=== PATIENT | female | born 1960 | race African-American/Black ===

== ENCOUNTER 2017-12-23 07:41 | Emergency (ER) | payer SELFPAY ==
[2017-12-23] MEDS ORDERED: DEXAMETHASONE 10 MG/ML VIAL ONE (08:04)
[2017-12-23] MEDS ORDERED: FENTANYL CITR 100 MCG/2 ML ONE (08:05)
[2017-12-23] MEDS ORDERED: ONDANSETRON 4 MG/2 ML VIAL ONE ×3 (08:05→14:24)
[2017-12-23] MEDS ORDERED: KETOROLAC 30 MG/ML INJ ONE (08:05)
[2017-12-23] MEDS ORDERED: METHOCARBAMOL 1,000 MG in NA CHLORIDE 0.9% 100 ML IV ONE (08:15)
[2017-12-23] MEDS ORDERED: HYDROMORPHONE HCL 2 MG/ML inj ONE (09:08)
[2017-12-23 09:35] LABS: Absolute Lymphocytes (CBC) 1.9 K/uL (0.7-4.9); Absolute Monocytes 0.3 K/uL (0.1-1.3); Absolute Neutrophil 5.2 K/uL (1.8-8.0); Basophils % 0.7 % (0-1.3); Eosinophils % 0.5 % (0-4.4); Hematocrit 41.7 % (36.0-45.0); Lymphocytes % 25.4 % (15.3-44.8); MCH 30.9 pg (27.0-35.0); MCV 93.5 fL (80-100); MPV 8.8 fL (7.6-11.3); Monocytes % 4.4 % (3.3-12.3); RBC Red Blood Cell Count 4.46 M/uL (3.86-4.86)
[2017-12-23 09:51] LABS: BUN Blood Urea Nitrogen 19 mg/dL (7-18); Bicarbonate 26 mmol/L (21-32); Glucose Level 90 mg/dL (74-106); Potassium 3.8 mmol/L (3.5-5.1); Sodium Level 143 mmol/L (136-145)
[2017-12-23] MEDS ORDERED: LORazepam 2 MG/ML VIAL ONE (09:55)
--- NOTE | 2017-12-23 10:35 | RAD REPORT ---
EXAM DESCRIPTION: MRI - Lumbar Spine Wo Con- 12/23/2017 10:19 am CLINICAL HISTORY: LOWER BACK PAIN Radiculopathy COMPARISON: CT ABDOMEN WO dated 05/31/2010 FINDINGS: Vertebral body heights are within normal limits. Small T2 hyperintense lesion is seen the L2 vertebral body, nonspecific. No fracture is suspected. The conus medullaris terminates at a normal level. No thickening of the cauda equina or clumping of n erve roots seen. L1-2 level: No significant findings. L2-3 level: Mild facet hypertrophy. L3-4 level: Durp-gv-yjwebjyd facet and ligamentum flavum hypertrophy. L4-5 level: Large central posterior annular fissure is present with a 3 mm central disc protrusion no manan. Mild bilateral facet and ligamentum flavum hypertrophy. No significant central canal narrowed na rrowing L5-S1 level: Large central posterior annular fissure is identified with a moderate central disc protr usion measuring 4 mm in anterior-posterior dimension. No central canal narrowing is seen mild narrowi ng the anterior inferior aspects both exit foramina. No paraspinal mass or hematoma suspected. IMPRESSION: Prominent spondylosis as detailed at L4-5 and L5-S1. Small T1 hypointense, T2 hyperintense lesion in the L2 vertebral body is nonspecific. Consider follow up nonemergent nuclear medicine bone scan evaluation.
--- NOTE | 2017-12-23 11:18 | ER ---
Nurse's Notes [facility] Name: Huyen Cerda Age: 57 yrs Sex: Female : 1960 Arrival Date: 12/23/2017 Time: 07:45 Bed 13 Private MD: Diagnosis: Low back pain;Spondylosis Presentation: 12/23 07:50 Presenting complaint: Patient states: "i went swimming 2 days ago and i have been tw2 having back pain since then". Transition of care: patient was not received from another setting of care. Onset of symptoms was December 23, 2017. Risk Assessment: Do you want to hurt yourself or someone else? Patient reports no desire to harm self or others. Initial Sepsis Screen: Does the patient meet any 2 criteria? No. Patient's initial sepsis screen is negative. Does the patient have a suspected source of infection? No. Patient's initial sepsis screen is negative. Care prior to arrival: None. 07:50 Method Of Arrival: Wheelchair tw2 07:50 Acuity: CINDY 4 tw2 09:14 Acuity: CINDY 3 hb Triage Assessment: 07:52 General: Appears uncomfortable, well groomed, Behavior is crying. Pain: Complains of tw2 pain in back. EENT: No signs and/or symptoms were reported regarding the EENT system. Neuro: Level of Consciousness is awake, alert, obeys commands, Oriented to person, place, time, situation. Cardiovascular: Denies chest pain, shortness of breath, Patient's skin is warm and dry. Respiratory: Airway is patent Respiratory effort is even, unlabored, Respiratory pattern is regular, symmetrical. GI: No signs and/or symptoms were reported involving the gastrointestinal system. : No signs and/or symptoms were reported regarding the genitourinary system. Derm: No signs and/or symptoms reported regarding the dermatologic system. Musculoskeletal: Circulation, motion, and sensation intact. Range of motion: intact in all extremities. Historical: - Allergies: 07:54 PENICILLINS; tw2 - Home Meds: 07:54 "unknown blood pressure and cholesterol medicine" [Active]; tw2 - PMHx: 07:54 Hypertension; Hyperlipidemia; tw2 - PSHx: 07:54 Hysterectomy; tw2 - Immunization history:: Adult Immunizations up to date. - Social history:: Smoking status: Patient/guardian denies using tobacco. - Ebola Screening: : Patient denies travel to an Ebola-affected area in the 21 days before illness onset. Screenin:52 Abuse screen: Denies threats or abuse. Nutritional screening: No deficits noted. tw2 Tuberculosis screening: No symptoms or risk factors identified. Fall Risk None identified. Assessment: 07:55 Reassessment: provider at bedside at this time. tw2 08:51 Reassessment: No changes from previously documented assessment. Patient and/or family tw2 updated on plan of care and expected duration. Pain level reassessed. Patient is alert, oriented x 3, equal unlabored respirations, skin warm/dry/pink. "do yall have a sandwich or something", crackers and drink provided at this time. Patient states symptoms have not improved. Neuro: Level of Consciousness is awake, alert, obeys commands. 09:02 Reassessment: provider at bedside at this time. tw2 09:13 Reassessment: lab at bedside at this time, pt pulling arm back when they were trying to tw2 get blood, lab was able to get blood on the 2nd stick. 09:38 Reassessment: pt transported via stretcher to MRI at this time. tw2 09:55 Reassessment: MRI called, pt uncooperative, states "needs something for tw2 claustrophobia", provider notified, medicated as ordered. 10:37 Reassessment: Patient appears in no apparent distress at this time. Patient and/or tw2 family updated on plan of care and expected duration. Pain level reassessed. Patient is alert, oriented x 3, equal unlabored respirations, skin warm/dry/pink. pt back from MRI at this time, pt drowsy but arousable, will answer and did answer her personal phone at this time. 11:30 Reassessment: Patient appears in no apparent distress at this time. Patient and/or tw2 family updated on plan of care and expected duration. Pain level reassessed. Patient is alert, oriented x 3, equal unlabored respirations, skin warm/dry/pink. pt still drowsy but arousable, pt instructed to call family again for ride, pt verbalizes understanding and is using her phone at this time. 12:15 Reassessment: pt still very drowsy, assisted pt to call family to pick her up, pt iw states that her family has to ride the bus to get here then will take her home in her car, assisted pt with getting dressed, pt able to stand but still shaky, pt placed back in bed to await ride. 14:25 Reassessment: pt vomiting at this time, SONIA García at bedside to assess pt, family now at bedside, will stay with pt when she is discharged, pt medicated per JUL. Vital Signs: 07:51 BP 164 / 115; Pulse 119; Resp 19; Temp 98.0(O); Pulse Ox 100% on R/A; Weight 79.38 kg tw2 (R); Height 5 ft. 3 in. (160.02 cm); Pain 10/10; 08:50 BP 154 / 94; Pulse 80; Resp 17; Pulse Ox 98% on R/A; tw2 09:19 Pulse Ox 90% on R/A; tw2 10:36 BP 168 / 73; Pulse 86; Resp 12; Pulse Ox 97% on 2 lpm NC; tw2 11:29 BP 144 / 72; Pulse 93; Resp 17; Pulse Ox 97% on 2 lpm NC; tw2 12:41 BP 158 / 87; Pulse 74; Resp 14; Pulse Ox 96% on R/A; Pain 0/10; iw 07:51 Body Mass Index 31.00 (79.38 kg, 160.02 cm) tw2 09:19 pt placed on o2 via 2L at this time, will continue to monitor, pt laying flat states "i tw2 dont like the way i feel", pt educated as to the side effects of Dilaudid again at this time. ED Course: 07:45 Patient arrived in ED. tw3 07:50 Galilea Jerez, MATTHEW is Primary Nurse. tw2 07:51 Triage completed. tw2 07:51 Ricky Matta PA is PHCP. jr8 07:51 Xavi Ricks MD is Attending Physician. jr8 07:51 Arm band placed on. tw2 07:52 Bed in low position. Call light in reach. Pulse ox on. NIBP on. tw2 08:04 Inserted saline lock: 20 gauge in right antecubital area, using aseptic technique. dh3 09:55 One on one care x30 minutes in MRI. tw2 09:58 Patient moved to MRI via stretcher. em2 10:17 MRI Lumbar Spine wo Con In Process Unspecified. EDMS 10:25 MRI completed. em2 10:25 Patient moved back from MRI. em2 11:28 Awaiting: family to drive pt home PRIOR to discharge. tw2 11:52 Report given to MATTHEW Salgado. tw2 12:37 Primary Nurse role handed off by Galilea Jerez RN iw 12:37 Naomi Blas RN is Primary Nurse. iw 14:36 No provider procedures requiring assistance completed. IV discontinued, intact, iw bleeding controlled, No redness/swelling at site. Pressure dressing applied. Administered Medications: 08:00 Drug: Zofran 4 mg Route: IVP; Site: right antecubital; tw2 08:21 Follow up: Response: No adverse reaction tw2 08:02 Drug: fentaNYL (PF) 50 mcg Route: IVP; Site: right antecubital; tw2 08:20 Follow up: Response: No adverse reaction; Pain is unchanged, physician notified tw2 08:04 Drug: TORadol 30 mg Route: IVP; Site: right antecubital; tw2 08:21 Follow up: Response: No adverse reaction tw2 08:06 Drug: Decadron - Dexamethasone 10 mg Route: IVP; Site: right antecubital; tw2 08:20 Follow up: Response: No adverse reaction tw2 08:16 Drug: Robaxin 1 grams Route: IVPB; Infused Over: 1 hrs; Site: right antecubital; tw2 09:17 Follow up: Response: No adverse reaction; IV Status: Completed infusion tw2 09:17 Follow up: Response: No adverse reaction; IV Status: Completed infusion tw2 08:20 Drug: fentaNYL (PF) 50 mcg Route: IVP; Site: right antecubital; tw2 08:51 Follow up: Response: No adverse reaction; Pain is unchanged, physician notified tw2 09:08 Drug: Dilaudid 2 mg Route: IVP; Site: right antecubital; tw2 09:35 Follow up: Response: No adverse reaction; Pain is decreased tw2 09:37 Drug: Zofran 4 mg Route: IVP; Site: right antecubital; tw2 09:55 Follow up: Response: No adverse reaction; Nausea is decreased tw2 09:55 Drug: Ativan 0.5 mg Route: IVP; Site: right antecubital; tw2 10:00 Follow up: Response: No adverse reaction tw2 10:03 Drug: Ativan 0.5 mg Route: IVP; Site: right antecubital; tw2 10:25 Follow up: Response: No adverse reaction; Marked relief of symptoms tw2 14:20 Drug: Zofran 4 mg Route: IVP; Site: right antecubital; iw 14:45 Follow up: Response: No adverse reaction iw Outcome: 11:18 Discharge ordered by . [place] 14:36 Discharged to home via wheelchair, with family. iw 14:36 Condition: good 14:36 Discharge instructions given to patient, family, pt fiance at bedside to assist pt to wheelchair, pt able to stand on her own, got into wheelchair on her own, fiance educated on need to remain with pt at home Instructed on discharge instructions, follow up and referral plans. medication usage, Demonstrated understanding of instructions, follow-up care, medications, Prescriptions given X 2. 14:37 Patient left the ED. iw Signatures: Dispatcher [employer] EDMS Naomi Blas RN RN Ricky Matta PA PA jr8 Michael Alvarez em2 Romana Berry RN RN Galilea Jerez RN RN tw2 Lidia Jones 3 Katherine Heaton 3 Corrections: (The following items were deleted from the chart) 11:11 11:10 MRI completed. em2 em2 11:11 11:10 MRI completed. em2 em2 11:11 10:25 Patient moved back from MRI. em2 em2
--- NOTE | 2017-12-23 11:18 | EDPHYS ---
Physician Documentation [facility] Name: Huyen Cerda Age: 57 yrs Sex: Female : 1960 Arrival Date: 12/23/2017 Time: 07:45 Bed 13 Private MD: ED Physician Xavi Ricks HPI: 12/23 08:11 This 57 yrs old Black Female presents to ER via Wheelchair with complaints of Back Pain.jr8 08:11 The patient presents with pain that is acute. The symptoms are located in the low back. jr8 Onset: The symptoms/episode began/occurred acutely, yesterday. The pain does not radiate. Associated signs and symptoms: The patient has no apparent associated signs or symptoms. Modifying factors: The patient symptoms are alleviated by nothing, the patient symptoms are aggravated by any movement. Severity of symptoms: At their worst the symptoms were moderate, in the emergency department the symptoms are unchanged. The patient has experienced similar episodes in the past, a few times. The patient has not recently seen a physician. Patient stated that she has chronic back pain. Stated that she went swimming yesterday. Since then has had pain in low back. Now to the point where she cannot control the pain . Historical: - Allergies: 07:54 PENICILLINS; tw2 - Home Meds: 07:54 "unknown blood pressure and cholesterol medicine" [Active]; tw2 - PMHx: 07:54 Hypertension; Hyperlipidemia; tw2 - PSHx: 07:54 Hysterectomy; tw2 - Immunization history:: Adult Immunizations up to date. - Social history:: Smoking status: Patient/guardian denies using tobacco. - Ebola Screening: : Patient denies travel to an Ebola-affected area in the 21 days before illness onset. ROS: 08:11 Eyes: Negative for injury, pain, redness, and discharge, ENT: Negative for injury, jr8 pain, and discharge, Neck: Negative for injury, pain, and swelling, Cardiovascular: Negative for chest pain, palpitations, and edema, Respiratory: Negative for shortness of breath, cough, wheezing, and pleuritic chest pain, Abdomen/GI: Negative for abdominal pain, nausea, vomiting, diarrhea, and constipation, MS/Extremity: Negative for injury and deformity, Skin: Negative for injury, rash, and discoloration, Neuro: Negative for headache, weakness, numbness, tingling, and seizure. 08:11 Back: Positive for decreased range of motion, pain at rest, pain with movement, of the low back area, Negative for radiated pain. Exam: 08:11 Eyes: Pupils equal round and reactive to light, extra-ocular motions intact. Lids and jr8 lashes normal. Conjunctiva and sclera are non-icteric and not injected. Cornea within normal limits. Periorbital areas with no swelling, redness, or edema. ENT: Nares patent. No nasal discharge, no septal abnormalities noted. Tympanic membranes are normal and external auditory canals are clear. Oropharynx with no redness, swelling, or masses, exudates, or evidence of obstruction, uvula midline. Mucous membranes moist. Neck: Trachea midline, no thyromegaly or masses palpated, and no cervical lymphadenopathy. Supple, full range of motion without nuchal rigidity, or vertebral point tenderness. No Meningismus. Cardiovascular: Regular rate and rhythm with a normal S1 and S2. No gallops, murmurs, or rubs. Normal PMI, no JVD. No pulse deficits. Respiratory: Lungs have equal breath sounds bilaterally, clear to auscultation and percussion. No rales, rhonchi or wheezes noted. No increased work of breathing, no retractions or nasal flaring. Abdomen/GI: Soft, non-tender, with normal bowel sounds. No distension or tympany. No guarding or rebound. No evidence of tenderness throughout. Skin: Warm, dry with normal turgor. Normal color with no rashes, no lesions, and no evidence of cellulitis. MS/ Extremity: Pulses equal, no cyanosis. Neurovascular intact. Full, normal range of motion. Neuro: Awake and alert, GCS 15, oriented to person, place, time, and situation. Cranial nerves II-XII grossly intact. Motor strength 4/5 in lower extremities. 5/5 upper extremities. Sensory grossly intact. Cerebellar exam normal. Normal gait. 08:11 Back: pain, that is moderate, of the low back area, ROM is painful, with all movement, normal spinal alignment noted, CVA tenderness, is absent, vertebral tenderness, is not appreciated. 08:11 Constitutional: The patient appears alert, awake, in obvious pain, uncomfortable. jr8 Vital Signs: 07:51 BP 164 / 115; Pulse 119; Resp 19; Temp 98.0(O); Pulse Ox 100% on R/A; Weight 79.38 kg tw2 (R); Height 5 ft. 3 in. (160.02 cm); Pain 10/10; 08:50 BP 154 / 94; Pulse 80; Resp 17; Pulse Ox 98% on R/A; tw2 09:19 Pulse Ox 90% on R/A; tw2 10:36 BP 168 / 73; Pulse 86; Resp 12; Pulse Ox 97% on 2 lpm NC; tw2 11:29 BP 144 / 72; Pulse 93; Resp 17; Pulse Ox 97% on 2 lpm NC; tw2 12:41 BP 158 / 87; Pulse 74; Resp 14; Pulse Ox 96% on R/A; Pain 0/10; iw 07:51 Body Mass Index 31.00 (79.38 kg, 160.02 cm) tw2 09:19 pt placed on o2 via 2L at this time, will continue to monitor, pt laying flat states "i tw2 dont like the way i feel", pt educated as to the side effects of Dilaudid again at this time. MDM: 07:51 Patient medically screened. jr8 11:15 Data reviewed: vital signs, nurses notes, lab test result(s), radiologic studies, MRI. jr8 Data interpreted: Pulse oximetry: on room air is 97 %. Interpretation: normal. Counseling: I had a detailed discussion with the patient and/or guardian regarding: the historical points, exam findings, and any diagnostic results supporting the discharge/admit diagnosis, lab results, radiology results, the need for outpatient follow up, a neurosurgeon, to return to the emergency department if symptoms worsen or persist or if there are any questions or concerns that arise at home. ED course: Patient exponentially improved after Dilaudid dosing. Explained in detail MRI results and the need to f/u with neurosurgery at this point but no acute cord compression at this time. Patient is good with this and will follow up . 12/23 08:59 Order name: CBC with Diff; Complete Time: 09:37 jr8 12/23 08:59 Order name: Basic Metabolic Panel; Complete Time: 09:53 jr8 12/23 08:59 Order name: MRI Lumbar Spine wo Con; Complete Time: 10:37 jr8 12/23 07:57 Order name: IV; Complete Time: 08:05 jr8 Administered Medications: 08:00 Drug: Zofran 4 mg Route: IVP; Site: right antecubital; tw2 08:21 Follow up: Response: No adverse reaction tw2 08:02 Drug: fentaNYL (PF) 50 mcg Route: IVP; Site: right antecubital; tw2 08:20 Follow up: Response: No adverse reaction; Pain is unchanged, physician notified tw2 08:04 Drug: TORadol 30 mg Route: IVP; Site: right antecubital; tw2 08:21 Follow up: Response: No adverse reaction tw2 08:06 Drug: Decadron - Dexamethasone 10 mg Route: IVP; Site: right antecubital; tw2 08:20 Follow up: Response: No adverse reaction tw2 08:16 Drug: Robaxin 1 grams Route: IVPB; Infused Over: 1 hrs; Site: right antecubital; tw2 09:17 Follow up: Response: No adverse reaction; IV Status: Completed infusion tw2 09:17 Follow up: Response: No adverse reaction; IV Status: Completed infusion tw2 08:20 Drug: fentaNYL (PF) 50 mcg Route: IVP; Site: right antecubital; tw2 08:51 Follow up: Response: No adverse reaction; Pain is unchanged, physician notified tw2 09:08 Drug: Dilaudid 2 mg Route: IVP; Site: right antecubital; tw2 09:35 Follow up: Response: No adverse reaction; Pain is decreased tw2 09:37 Drug: Zofran 4 mg Route: IVP; Site: right antecubital; tw2 09:55 Follow up: Response: No adverse reaction; Nausea is decreased tw2 09:55 Drug: Ativan 0.5 mg Route: IVP; Site: right antecubital; tw2 10:00 Follow up: Response: No adverse reaction tw2 10:03 Drug: Ativan 0.5 mg Route: IVP; Site: right antecubital; tw2 10:25 Follow up: Response: No adverse reaction; Marked relief of symptoms tw2 14:20 Drug: Zofran 4 mg Route: IVP; Site: right antecubital; iw 14:45 Follow up: Response: No adverse reaction iw Disposition: 18:37 Co-signature as Attending Physician, Xavi Ricks MD. gs Disposition: 12/23/17 11:18 Discharged to Home. Impression: Low back pain, Spondylosis. - Condition is Stable. - Discharge Instructions: Back Pain, Adult, Herniated Disk, Musculoskeletal Pain, Heat Therapy. - Prescriptions for Mobic 7.5 mg Oral Tablet - take 1 tablet by ORAL route once daily take with food; 20 tablet. Robaxin 500 mg Oral Tablet - take 2 tablet by ORAL route every 6 hours As needed; 40 tablet. - Work release form, Medication Reconciliation Form, Thank You Letter, Antibiotic Education, Prescription Opioid Use form. - Follow up: Private Physician; When: 2 - 3 days; Reason: Recheck today's complaints, Continuance of care, Re-evaluation by your physician. - Problem is new. - Symptoms have improved. Signatures: Dispatcher [employer] EDMS Naomi Blas RN RN iw Ricky Matta PA PA jr8 Galilea Jerez RN RN tw2 Xavi Ricks MD MD gs Corrections: (The following items were deleted from the chart) 09:15 08:11 Eyes: Pupils equal round and reactive to light, extra-ocular motions intact. Lids jr8 and lashes normal. Conjunctiva and sclera are non-icteric and not injected. Cornea within normal limits. Periorbital areas with no swelling, redness, or edema. ENT: Nares patent. No nasal discharge, no septal abnormalities noted. Tympanic membranes are normal and external auditory canals are clear. Oropharynx with no redness, swelling, or masses, exudates, or evidence of obstruction, uvula midline. Mucous membranes moist. Neck: Trachea midline, no thyromegaly or masses palpated, and no cervical lymphadenopathy. Supple, full range of motion without nuchal rigidity, or vertebral point tenderness. No Meningismus. Cardiovascular: Regular rate and rhythm with a normal S1 and S2. No gallops, murmurs, or rubs. Normal PMI, no JVD. No pulse deficits. Respiratory: Lungs have equal breath sounds bilaterally, clear to auscultation and percussion. No rales, rhonchi or wheezes noted. No increased work of breathing, no retractions or nasal flaring. Abdomen/GI: Soft, non-tender, with normal bowel sounds. No distension or tympany. No guarding or rebound. No evidence of tenderness throughout. Skin: Warm, dry with normal turgor. Normal color with no rashes, no lesions, and no evidence of cellulitis. MS/ Extremity: Pulses equal, no cyanosis. Neurovascular intact. Full, normal range of motion. Neuro: Awake and alert, GCS 15, oriented to person, place, time, and situation. Cranial nerves II-XII grossly intact. Motor strength 5/5 in all extremities. Sensory grossly intact. Cerebellar exam normal. Normal gait. jr8 09:36 08:11 Back: pain, that is moderate, of the low back area, ROM is painful, with all jr8 movement, normal spinal alignment noted, CVA tenderness, is absent, vertebral tenderness, is not appreciated, jr8 09:36 08:11 Eyes: Pupils equal round and reactive to light, extra-ocular motions intact. Lids jr8 and lashes normal. Conjunctiva and sclera are non-icteric and not injected. Cornea within normal limits. Periorbital areas with no swelling, redness, or edema. ENT: Nares patent. No nasal discharge, no septal abnormalities noted. Tympanic membranes are normal and external auditory canals are clear. Oropharynx with no redness, swelling, or masses, exudates, or evidence of obstruction, uvula midline. Mucous membranes moist. Neck: Trachea midline, no thyromegaly or masses palpated, and no cervical lymphadenopathy. Supple, full range of motion without nuchal rigidity, or vertebral point tenderness. No Meningismus. Cardiovascular: Regular rate and rhythm with a normal S1 and S2. No gallops, murmurs, or rubs. Normal PMI, no JVD. No pulse deficits. Respiratory: Lungs have equal breath sounds bilaterally, clear to auscultation and percussion. No rales, rhonchi or wheezes noted. No increased work of breathing, no retractions or nasal flaring. Abdomen/GI: Soft, non-tender, with normal bowel sounds. No distension or tympany. No guarding or rebound. No evidence of tenderness throughout. Skin: Warm, dry with normal turgor. Normal color with no rashes, no lesions, and no evidence of cellulitis. MS/ Extremity: Pulses equal, no cyanosis. Neurovascular intact. Full, normal range of motion. Neuro: Awake and alert, GCS 15, oriented to person, place, time, and situation. Cranial nerves II-XII grossly intact. Motor strength 5/5 in all extremities. Sensory grossly intact. Cerebellar exam normal. Normal gait. jr8 14:37 11:18 12/23/2017 11:18 Discharged to Home. Impression: Low back pain; Spondylosis. iw Condition is Stable. Forms are Medication Reconciliation Form, Thank You Letter, Antibiotic Education, Prescription Opioid Use. Follow up: Private Physician; When: 2 - 3 days; Reason: Recheck today's complaints, Continuance of care, Re-evaluation by your physician. Problem is new. Symptoms have improved. jr8
== END 2017-12-23 14:37 | disposition home or self-care (01) ==
LOC: ER 07:41
DX: M47.9 Spondylosis, unspecified (principal); I10 Essential (primary) hypertension; E78.5 Hyperlipidemia, unspecified; Z88.0 Allergy status to penicillin
CPT/HCPCS: 36415; 72148; 80048; 85025; 96365; 96375; 99284; J1100; J1170; J2405; J2800; J3010

== ENCOUNTER 2020-02-08 12:29 | Inpatient (IN) | payer OTHER, SELFPAY ==
[2020-02-08] MEDS ORDERED: METOPROLOL TARTRATE 5 MG/5 ML INJ IV ONE (13:12)
[2020-02-08] MEDS ORDERED: ASPIRIN 81 MG CHEWABLE TABLET ONE (13:12)
[2020-02-08 13:24] LABS: Absolute Lymphocytes (CBC) 1.6 K/uL (0.7-4.9); Basophils % 0.6 % (0-1.3); Hematocrit 38.2 % (36.0-45.0); Lymphocytes % 24.1 % (15.3-44.8); MPV 9.5 fL (7.6-11.3); RBC Red Blood Cell Count 3.93 M/uL (3.86-4.86)
[2020-02-08 13:40] LABS: ALT/SGPT 83 U/L (12-78); AST/SGOT 43 U/L (15-37); Albumin 3.8 g/dL (3.4-5.0); Alkaline Phosphatase 85 U/L (45-117); BUN Blood Urea Nitrogen 15 mg/dL (7-18); Bicarbonate 25 mmol/L (21-32); Bilirubin Direct < 0.1 mg/dL (0-0.2); Bilirubin Total 0.2 mg/dL (0.2-1.0); Glucose Level 113 mg/dL (74-106); Magnesium 2.1 mg/dL (1.8-2.4); NT PRO-BNP 443 pg/mL (<125); Potassium 3.4 mmol/L (3.5-5.1); Protein, Total 7.8 g/dL (6.4-8.2); Sodium Level 144 mmol/L (136-145); Troponin (Emerg Dept Use Only) < 0.02 ng/mL (0.0-0.045)
--- NOTE | 2020-02-08 14:30 | EDPHYS ---
Physician Documentation [facility] Name: Huyen Cerda Age: 59 yrs Sex: Female : 1960 Arrival Date: 02/08/2020 Time: 12:35 Bed 2 Private MD: ED Physician Herminio Pat HPI: 02/07 14:11 This 59 yrs old Black Female presents to ER via EMS with complaints of Chest Pain. jr8 14:11 The patient or guardian reports chest pain that is located primarily in the substernal jr8 area. Onset: acutely, today. The pain does not radiate. Associated signs and symptoms: Pertinent positives: diaphoresis, nausea, palpitations, shortness of breath. The chest pain is described as a pressure. Duration: The patient or guardian reports a single episode, that is still ongoing. Modifying factors: The symptoms are alleviated by nothing. the symptoms are aggravated by nothing. Severity of pain: At its worst the pain was moderate in the emergency department the pain is unchanged. The patient has not experienced similar symptoms in the past. The patient has not recently seen a physician. Patient with history of atrial fib but non compliant with meds. Stated that she has occasional cocaine usage as well. Came to ED today for palpitations and chest tightness. EMS stated that she was in RVR. Given one round of metoprolol with pain relief but still in RVR upon arrival . Historical: - Allergies: 12:44 PENICILLINS; em - PMHx: 12:44 Hyperlipidemia; Hypertension; Atrial Fib; em - PSHx: 12:44 Hysterectomy; em - Immunization history:: Adult Immunizations up to date. - Social history:: Smoking status: unknown. ROS: 14:12 Eyes: Negative for injury, pain, redness, and discharge, ENT: Negative for injury, jr8 pain, and discharge, Neck: Negative for injury, pain, and swelling, Abdomen/GI: Negative for abdominal pain, vomiting, diarrhea, and constipation. Positive for nausea Back: Negative for injury and pain, MS/Extremity: Negative for injury and deformity, Skin: Negative for injury, rash, and discoloration, Neuro: Negative for headache, weakness, numbness, tingling, and seizure. 14:12 Cardiovascular: Positive for chest pain, palpitations, Negative for edema, orthopnea. 14:12 Respiratory: Positive for shortness of breath. Exam: 14:24 Eyes: Pupils equal round and reactive to light, extra-ocular motions intact. Lids and jr8 lashes normal. Conjunctiva and sclera are non-icteric and not injected. Cornea within normal limits. Periorbital areas with no swelling, redness, or edema. ENT: Nares patent. No nasal discharge, no septal abnormalities noted. Tympanic membranes are normal and external auditory canals are clear. Oropharynx with no redness, swelling, or masses, exudates, or evidence of obstruction, uvula midline. Mucous membranes moist. Neck: Trachea midline, no thyromegaly or masses palpated, and no cervical lymphadenopathy. Supple, full range of motion without nuchal rigidity, or vertebral point tenderness. No Meningismus. Respiratory: Lungs have equal breath sounds bilaterally, clear to auscultation and percussion. No rales, rhonchi or wheezes noted. No increased work of breathing, no retractions or nasal flaring. Abdomen/GI: Soft, non-tender, with normal bowel sounds. No distension or tympany. No guarding or rebound. No evidence of tenderness throughout. Back: No spinal tenderness. No costovertebral tenderness. Full range of motion. Skin: Warm, dry with normal turgor. Normal color with no rashes, no lesions, and no evidence of cellulitis. MS/ Extremity: Pulses equal, no cyanosis. Neurovascular intact. Full, normal range of motion. Neuro: Awake and alert, GCS 15, oriented to person, place, time, and situation. Cranial nerves II-XII grossly intact. Motor strength 5/5 in all extremities. Sensory grossly intact. 14:24 Cardiovascular: Rate: tachycardic, Rhythm: irregularly irregular, Pulses: Pulses are 2+ in right radial artery and left radial artery. Heart sounds: murmur, systolic, grade 3 over 6, Edema: is not appreciated, JVD: is not appreciated. Vital Signs: 12:39 BP 140 / 87; Pulse 121; Resp 20; Temp 97.8; Pulse Ox 99% on R/A; Weight 83.01 kg (R); em Height 5 ft. 3 in. (160.02 cm); Pain 5/10; 13:15 BP 127 / 71; Pulse 101; Resp 20; Pulse Ox 99% on R/A; em 14:30 BP 127 / 68; Pulse 95; Resp 18; Pulse Ox 98% on R/A; em 15:30 BP 124 / 67; Pulse 87; Resp 18; Pulse Ox 99% on R/A; em 12:39 Body Mass Index 32.42 (83.01 kg, 160.02 cm) em MDM: 12:37 Patient medically screened. jr8 14:24 The patient was given aspirin in the Emergency Department. Data reviewed: vital signs, 8 nurses notes, lab test result(s), EKG, radiologic studies, plain films. Data interpreted: Pulse oximetry: on room air is 99 %. Interpretation: normal. Counseling: I had a detailed discussion with the patient and/or guardian regarding: the historical points, exam findings, and any diagnostic results supporting the discharge/admit diagnosis, lab results, radiology results, the need for further work-up and treatment in the hospital. ED course: Dr. Ferraro called and will admit patient . 02/07 12:37 Order name: Basic Metabolic Panel; Complete Time: 14:03 [facility] 02/07 12:37 Order name: CBC with Diff; Complete Time: 14:03 [facility] 02/07 12:37 Order name: LFT's; Complete Time: 14:03 [facility] 02/07 12:37 Order name: Magnesium; Complete Time: 14:03 [facility] 02/07 12:37 Order name: NT PRO-BNP; Complete Time: 14:03 [facility] 02/07 12:37 Order name: PT-INR; Complete Time: 14:03 [facility] 02/07 12:37 Order name: Troponin (emerg Dept Use Only); Complete Time: 14:03 [facility] 02/07 12:37 Order name: XRAY Chest (1 view) [facility] 02/07 12:37 Order name: EKG; Complete Time: 12:38 [facility] 02/07 14:12 Order name: UDS [facility] 02/07 15:32 Order name: Urine Dipstick--Ancillary (enter results) nc 02/07 12:37 Order name: Cardiac monitoring; Complete Time: 12:45 [facility] 02/07 12:37 Order name: EKG - Nurse/Tech; Complete Time: 12:45 [facility] 02/07 12:37 Order name: IV Saline Lock; Complete Time: 12:45 [facility] 02/07 12:37 Order name: Labs collected and sent; Complete Time: 12:45 8 02/07 12:37 Order name: O2 Per Protocol; Complete Time: 12:45 8 02/07 12:37 Order name: O2 Sat Monitoring; Complete Time: 12:45 8 02/07 14:12 Order name: Urine Dipstick-Ancillary (obtain specimen); Complete Time: 15:31 jr8 Administered Medications: 13:16 Drug: Aspirin Chewable Tablet 324 mg Route: PO; em 13:45 Follow up: Response: No adverse reaction em 13:17 Drug: Metoprolol 5 mg Route: IVP; Site: right forearm; em 13:40 Follow up: Response: No adverse reaction; Cardiac rhythm changed em 15:27 Drug: Lovenox 1 mg/kg Route: Sub-Q; Site: right lower abdomen; ss 16:00 Follow up: Response: No adverse reaction em Disposition: 02/08 09:25 Co-signature as Attending Physician, Herminio Pat MD I agree with the assessment and kdr plan of care. Disposition: 02/08/20 14:29 Hospitalization ordered by Jose Ferraro for Observation. Preliminary diagnosis are Atrial fibrillation and flutter - with RVR, Chest pain, unspecified, Cardiac murmur, unspecified. - Bed requested for Telemetry/MedSurg (observation). - Status is Observation. em - Condition is Stable. - Problem is new. - Symptoms have improved. Signatures: Dispatcher [employer] EDHerminio Xie MD MD [facility] Ravin Holloway RN RN Kathy Alvarado RN RN Ricky Matta PA PA [facility] Kenyon Freeman RN RN ja1 Corrections: (The following items were deleted from the chart) 02/07 14:55 14:29 Hospitalization Ordered by Jose Ferraro MD for Observation. Preliminary ja1 diagnosis is Atrial fibrillation and flutter - with RVR; Chest pain, unspecified; Cardiac murmur, unspecified. Bed requested for Telemetry/MedSurg (observation). Status is Observation. Condition is Stable. Problem is new. Symptoms have improved. jr8 16:00 14:55 02/08/2020 14:29 Hospitalization Ordered by Jose Ferraro MD for Observation. em Preliminary diagnosis is Atrial fibrillation and flutter - with RVR; Chest pain, unspecified; Cardiac murmur, unspecified. Bed requested for Telemetry/MedSurg (observation). Status is Observation. Condition is Stable. Problem is new. Symptoms have improved. ja1
--- NOTE | 2020-02-08 14:30 | ER ---
Nurse's Notes [facility] [place] Name: Huyen Cerda Age: 59 yrs Sex: Female : 1960 Arrival Date: 02/08/2020 Time: 12:35 Bed 2 Private MD: Diagnosis: Atrial fibrillation and flutter-with RVR;Chest pain, unspecified;Cardiac murmur, unspecified Presentation: 02/07 12:39 Chief complaint: EMS states: called out for chest pain and palpitations, hx of afib em that started about 30-45 minutes ago, on scene EMS rate 140s afib RVR, was given 1 dosage of metoprolol per protocol, pt reports relief of symptoms but rate is unchanged, 20 G LAC. Coronavirus screen: Client denies travel out of the [place] in the last 14 days. Ebola Screen: Patient negative for fever greater than or equal to 101.5 degrees Fahrenheit, and additional compatible Ebola Virus Disease symptoms Patient denies exposure to infectious person. Patient denies travel to an Ebola-affected area in the 21 days before illness onset. No symptoms or risks identified at this time. Initial Sepsis Screen: Does the patient meet any 2 criteria? No. Patient's initial sepsis screen is negative. Does the patient have a suspected source of infection? No. Patient's initial sepsis screen is negative. Risk Assessment: Do you want to hurt yourself or someone else? Patient reports no desire to harm self or others. Onset of symptoms was February 08, 2020. 12:39 Method Of Arrival: EMS: [facility] em 12:39 Acuity: CINDY 2 em Historical: - Allergies: 12:44 PENICILLINS; em - PMHx: 12:44 Hyperlipidemia; Hypertension; Atrial Fib; em - PSHx: 12:44 Hysterectomy; em - Immunization history:: Adult Immunizations up to date. - Social history:: Smoking status: unknown. Screenin:44 Abuse screen: Denies threats or abuse. Nutritional screening: No deficits noted. em Tuberculosis screening: No symptoms or risk factors identified. Fall Risk None identified. Assessment: 12:39 General: Appears in no apparent distress. comfortable, Behavior is calm, cooperative, em appropriate for age, Denies fever. Pain: Complains of pain in chest Pain does not radiate. Pain currently is 5 out of 10 on a pain scale. Pain began 30 min ago. Neuro: Level of Consciousness is awake, alert, obeys commands, Oriented to person, place, time, situation, Appropriate for age. Cardiovascular: Reports chest pain, palpitations, shortness of breath, Capillary refill < 3 seconds Patient's skin is warm and dry. Rhythm is atrial fibrillation with rapid ventricular response. Respiratory: Airway is patent Respiratory effort is even, unlabored, Respiratory pattern is regular, symmetrical. GI: Patient currently denies nausea. Derm: Skin is intact, is fragile, is thin, Skin is pink, warm \T\ dry. Musculoskeletal: Capillary refill < 3 seconds, Range of motion: intact in all extremities. 13:20 Reassessment: Patient appears in no apparent distress at this time. Patient and/or em family updated on plan of care and expected duration. Pain level reassessed. Patient is alert, oriented x 3, equal unlabored respirations, skin warm/dry/pink. Patient states symptoms have improved. 14:40 Reassessment: Patient appears in no apparent distress at this time. ambulated to em restroom in wheelchair, tolerated well. 15:00 Reassessment: Dr. Ferraro at bedside. em 15:59 Reassessment: Patient appears in no apparent distress at this time. Patient and/or em family updated on plan of care and expected duration. Pain level reassessed. Patient is alert, oriented x 3, equal unlabored respirations, skin warm/dry/pink. Vital Signs: 12:39 BP 140 / 87; Pulse 121; Resp 20; Temp 97.8; Pulse Ox 99% on R/A; Weight 83.01 kg (R); em Height 5 ft. 3 in. (160.02 cm); Pain 5/10; 13:15 BP 127 / 71; Pulse 101; Resp 20; Pulse Ox 99% on R/A; em 14:30 BP 127 / 68; Pulse 95; Resp 18; Pulse Ox 98% on R/A; em 15:30 BP 124 / 67; Pulse 87; Resp 18; Pulse Ox 99% on R/A; em 12:39 Body Mass Index 32.42 (83.01 kg, 160.02 cm) em ED Course: 12:35 Patient arrived in ED. mr 12:36 [facility]ta [facility] jr8 12:37 Herminio Pat MD is Attending Physician. jr8 12:43 Triage completed. em 12:44 Arm band placed on. em 12:44 Patient has correct armband on for positive identification. Placed in gown. Bed in low em position. Call light in reach. Side rails up X2. quality assurance monitor body on. Pulse ox on. NIBP on. 12:44 Patient maintains SpO2 saturation greater than 95% on room air. em 12:44 Maintain EMS IV. Dressing intact. Good blood return noted. Site clean \T\ dry. Gauge \T\ em site: 20 LAC. 12:45 Ravin Holloway, RN is Primary Nurse. em 13:04 XRAY Chest (1 view) In Process Unspecified. EDMS 13:15 Inserted saline lock: 22 gauge in right forearm, using aseptic technique. Blood em collected. 14:28 Jose Ferraro MD is Hospitalizing Provider. jr8 15:57 No provider procedures requiring assistance completed. Patient admitted, IV remains in em place. Administered Medications: 13:16 Drug: Aspirin Chewable Tablet 324 mg Route: PO; em 13:45 Follow up: Response: No adverse reaction em 13:17 Drug: Metoprolol 5 mg Route: IVP; Site: right forearm; em 13:40 Follow up: Response: No adverse reaction; Cardiac rhythm changed em 15:27 Drug: Lovenox 1 mg/kg Route: Sub-Q; Site: right lower abdomen; ss 16:00 Follow up: Response: No adverse reaction em Outcome: 14:29 Decision to Hospitalize by Provider. jr8 15:57 Admitted to Tele accompanied by tech, via wheelchair, room 211, Report called to adelaida Patel RN 15:57 Condition: good 15:57 Instructed on the need for admit, Demonstrated understanding of instructions. 16:00 Patient left the ED. em Signatures: Dispatcher [employer] EDME Arcelia Hood Ravin Holloway, Kathy Hogue RN, RN RN Ricky Matta PA PA jr8
[2020-02-08] MEDS ORDERED: ENOXAPARIN 80 MG/0.8 ML SQ ONE (15:01)
--- NOTE | 2020-02-08 15:39 | P.HP ---
Certification for Inpatient Patient admitted to: Inpatient With expected LOS: >2 Midnights Practitioner: I am a practitioner with admitting privileges, knowledge of patient current condition, hospital course, and medical plan of care. Services: Services provided to patient in accordance with Admission requirements found in Title 42 Section 412.3 of the Code of Federal Regulations Patient History Date of Service: 02/08/20 Reason for admission: AFib with RVR, chest pain History of Present Illness: 51-year-old female, PMH: AFib not on any medications, HTN, history of " light heart attack" not requiring any intervention, and uterine fibroids s/p hysterectomy who presents to the ED due to sudden onset of chest pain. She describes her chest pain as severe tightness/squeezing. She also endorses some feeling of unable to catch her breath. She works in the kitchen at school. She states she was busy at work and went to the bathroom when the chest pain began. This continued until EMS arrived and gave her Lopressor. She reports no radiation, and was otherwise in her usual state of health. She also states she has not seen a physician in several years and has not been taking her medications with the exception of 1 of her blood pressure medications. In the ED she was found to be in AFib with RVR to the 130s, responded to 2 doses of 5 mg of Lopressor. She was given aspirin and Lovenox. Initial troponin was negative. Lab work was fairly unremarkable, mild BNP elevation of 443, mild elevation of LFTs. Of note patient reported some constipation approximately 1.5 weeks ago when she passed hard stool and had some mild bright red blood per rectum which resolved approximately 1 week ago. She reports never having a colonoscopy. She also endorses history of cocaine use, last used approximately 1 month ago and is trying to quit. Allergies Penicillins Allergy (Unverified 12/23/17 17:59) Unknown Home Medications: Carvedilol [Coreg] 25 mg PO BID 02/08/20 Diltiazem HCl [Dilt-Xr] 120 mg PO DAILY 02/08/20 Lisinopril [Zestril] 10 mg PO DAILY 02/08/20 - Past Medical/Surgical History -: Chronic AFib -: HTN -: CAD -: Hysterectomy - Family History Mother -: Heart disease - Social History Smoking Status: Current every day smoker Alcohol use: Yes Review of Systems 10-point ROS is otherwise unremarkable Physical Examination - Physical Exam General: Alert, In no apparent distress HEENT: Mucous membr. moist/pink Neck: JVD not distended Respiratory: Clear to auscultation bilaterally, Normal air movement Cardiovascular: Edema (Trace bilaterally), Irregular heart rate/rhythm (Tachycardic (100-110s)), Systolic murmur Gastrointestinal: Soft and benign, Non-distended, No tenderness Musculoskeletal: No erythema, No tenderness Integumentary: No rashes Neurological: Normal speech, Normal strength at 5/5 x4 extr, Normal affect - Studies Laboratory Data (last 24 hrs) 02/08/20 13:05: PT 11.8, INR 1.00 02/08/20 13:05: WBC 6.4, Hgb 12.5, Hct 38.2, Plt Count 236 02/08/20 13:05: Sodium 144, Potassium 3.4 L, BUN 15, Creatinine 0.71, Glucose 113 H, Magnesium 2.1, Total Bilirubin 0.2, AST 43 H, ALT 83 H, Alkaline Phosphatase 85 Assessment and Plan - Advance Directives Does patient have a Living Will: No Does patient have a Durable POA for Healthcare: No Physician Review Additional Text: AFib with RVR Chest pain HTN CAD Tobacco abuse Cocaine use AFib with RVR Chest pain -patient is not compliant, has not taken any of her medications since several years, does not know if she was on any anticoagulation previously -besides her recent bright red blood per rectum, reports no history of easy bruising/bleeding -cardiology consulted -will start patient on p.o. Cardizem, can up titrate as needed -therapeutic Lovenox ordered will monitor for any bleeding -initial troponin negative, will trend -echo ordered HTN -normotensive in the ED -confirm home meds and restart as appropriate CAD -patient reports history of Mild heart attack, no history of any stents or CABG Tobacco abuse -nicotine patch ordered Cocaine use -urine tox negative, last used a month ago -hesitant to use beta [place], as she may go back to using cocaine Dispo: anticipate dc home in ~2 days Time Spent Managing Pts Care (In Minutes): 60
[2020-02-08 16:01] LABS: Urine Blood NEGATIVE (NEG); Urine Glucose NEGATIVE (NEG); Urine Protein NEGATIVE (NEG); Urine Specific Gravity 1.025 (1.005-1.030)
[2020-02-08 16:02] LABS: Barbiturates NEGATIVE (NEGATIVE); Benzodiazepines NEGATIVE (NEGATIVE); Cocaine NEGATIVE (NEGATIVE); METHAMPHETAM NEGATIVE (NEGATIVE); Methadone NEGATIVE (NEGATIVE); Opiates NEGATIVE (NEGATIVE); Phencyclidine NEGATIVE (NEGATIVE); THC Cannibis NEGATIVE (NEGATIVE)
[2020-02-08 16:27] VITALS: BMI 33.0
[2020-02-08] MEDS: DILTIAZEM HCL 60 MG TAB PO SCH (16:45)
[2020-02-08] MEDS: NICOTINE 14 MG/PAT TD SCH (16:53)
[2020-02-08] MEDS ORDERED: POTASSIUM CL SA 10 MEQ TAB PO ONE (18:00)
[2020-02-08] MEDS ORDERED: INFLUENZA VACCINE (for 3y+) 0.5 ML DOSE IMVAC ONE (20:00)
[2020-02-08] MEDS: ENOXAPARIN 80 MG/0.8 ML SQ SCH (20:27)
[2020-02-08] MEDS ORDERED: ACETAMINOPHEN 325 MG TABLET PO PRN (20:37)
[2020-02-08 21:34] LABS: Thyroid Stimulating Hormone 2.05 uIU/mL (0.360-3.740); Troponin I 0.05 ng/mL (0.0-0.045)
[2020-02-09] MEDS: DILTIAZEM HCL 60 MG TAB PO SCH ×3 (00:13→12:03)
[2020-02-09 06:40] LABS: Absolute Lymphocytes (CBC) 2.2 K/uL (0.7-4.9); Basophils % 0.7 % (0-1.3); Hematocrit 38.5 % (36.0-45.0); MPV 9.2 fL (7.6-11.3); RBC Red Blood Cell Count 4.01 M/uL (3.86-4.86)
[2020-02-09 06:53] LABS: ALT/SGPT 81 U/L (12-78); AST/SGOT 39 U/L (15-37); Albumin 3.4 g/dL (3.4-5.0); Alkaline Phosphatase 77 U/L (45-117); BUN Blood Urea Nitrogen 11 mg/dL (7-18); Bicarbonate 25 mmol/L (21-32); Bilirubin Total 0.4 mg/dL (0.2-1.0); Glucose Level 94 mg/dL (74-106); HDL Cholesterol 66 mg/dL (40-60); LDL Cholesterol, Calculated 107 (<130); Potassium 3.8 mmol/L (3.5-5.1); Protein, Total 7.2 g/dL (6.4-8.2); Sodium Level 144 mmol/L (136-145); Troponin I 0.02 ng/mL (0.0-0.045)
[2020-02-09] MEDS ORDERED: POTASSIUM CL SA 10 MEQ TAB PO ONE (07:22)
--- NOTE | 2020-02-09 08:00 | P.PN ---
Subjective Date of Service: 02/09/20 Chief Complaint: AFib with RVR, chest pain Subjective: Improving (feeling slightly better this morning, continues with some dyspnea when walking to bathroom no chest pain since arrival to ED. HR in 90s- 110s overnight) Physical Examination - Vital Signs Temperature: 97.2 F Blood Pressure: 150/80 Pulse: 90 Respirations: 14 Pulse Ox (%): 95 - Physical Exam General: Alert, In no apparent distress HEENT: Mucous membr. moist/pink Respiratory: Clear to auscultation bilaterally, Normal air movement Cardiovascular: No edema, Irregular heart rate/rhythm Gastrointestinal: Soft and benign, Non-distended, No tenderness Musculoskeletal: No erythema, No tenderness Integumentary: No rashes Neurological: Normal speech - Studies Laboratory Data (last 24 hrs) 02/08/20 13:05: PT 11.8, INR 1.00 02/08/20 13:05: WBC 6.4, Hgb 12.5, Hct 38.2, Plt Count 236 02/08/20 13:05: Sodium 144, Potassium 3.4 L, BUN 15, Creatinine 0.71, Glucose 113 H, Magnesium 2.1, Total Bilirubin 0.2, AST 43 H, ALT 83 H, Alkaline Phosphatase 85 Assessment & Plan Physician Review Additional Text: AFib with RVR Chest pain HTN CAD Tobacco abuse Cocaine use AFib with RVR Chest pain -patient is not compliant, has not taken any of her medications since several years, does not know if she was on any anticoagulation previously -besides her recent bright red blood per rectum after passing hard stool (now resolved), reports no history of easy bruising/bleeding -troponin <0.02 - 0.05 - <0.02, likely demand ischemia in setting of AFib with RVR -HR improved, started on Cardizem PO 30mg on admission; after confirmation, she is supposed to be taking diltiazem 120mg ER daily and coreg at home -CHADSVASc: 3 if counting for prior "mild hear attack", therapeutic Lovenox ordered will monitor for any bleeding -cardiology consulted -echo ordered HTN -normotensive in the ED but has become more hypertensive -was restarted on home lisinopril and coreg last night CAD -patient reports history of Mild heart attack, no history of any stents or CABG Tobacco abuse -nicotine patch ordered Cocaine use -urine tox negative, last used a month ago Dispo: anticipate dc home in next 24-48hrs patient without insurance, will discuss with social service technician - possibility of coupon Time Spent Managing Pts Care (In Minutes): 35
[2020-02-09] MEDS: ENOXAPARIN 80 MG/0.8 ML SQ SCH (08:15)
[2020-02-09] MEDS: NICOTINE 14 MG/PAT TD SCH (08:20)
[2020-02-09] MEDS ORDERED: lisinopriL 10 MG TAB PO SCH (09:00)
[2020-02-09] MEDS ORDERED: carvediloL 25 MG TAB PO SCH (09:00)
--- NOTE | 2020-02-09 11:38 | EKG ---
Test Date: 2020-02-09 Test Time: 08:26:47 Safety Lamp Keeper: MINOO MEASUREMENT RESULTS: Intervals: Rate: 100 [place]: QRSD: 84 QT: 352 QTc: 454 [place]: P: [place]: QRS: 21 T: 246 INTERPRETIVE STATEMENTS: Atrial fibrillation Moderate voltage criteria for LVH, may be normal variant ST & T wave abnormality, consider inferolateral ischemia or digitalis effect Abnormal ECG Compared to ECG 02/08/2020 12:39:11 No significant changes Electronically Signed On 02-09-20 11:37:07 CDT by Stefano Ruiz
--- NOTE | 2020-02-09 11:41 | EKG ---
Test Date: 2020-02-08 Test Time: 12:39:11 Flash Oven Operator: FAUSTINO MEASUREMENT RESULTS: Intervals: Rate: 115 [place]: QRSD: 96 QT: 334 QTc: 462 [place]: P: [place]: QRS: 46 T: 261 INTERPRETIVE STATEMENTS: Atrial fibrillation with rapid ventricular response Moderate voltage criteria for LVH, may be normal variant ST & T wave abnormality, consider inferolateral ischemia or digitalis effect Abnormal ECG Compared to ECG 07/10/2015 11:46:07 ST (T wave) deviation now present Sinus rhythm no longer present T-wave abnormality no longer present Possible ischemia still present Electronically Signed On 02-09-20 11:37:41 CDT by Stefano Ruiz
--- NOTE | 2020-02-09 11:45 | RAD REPORT ---
EXAM DESCRIPTION: RAD - Chest Single View - 02/09/2020 7:51 am CLINICAL HISTORY: CHEST PAIN COMPARISON: March 2010 TECHNIQUE: AP portable chest image was obtained 02/09/2020 7:51 am . FINDINGS: Lung volumes are low. Large body habitus and under penetrated technique further compromise the examination. No peripheral mass or consolidation. Fullness of the right hilum is believed to be secondary to the l imitations of this examination. Mild cardiomegaly is present. Central vasculature is prominent. Trach ea is midline. No measurable pleural effusion and no pneumothorax. No acute bony abnormality seen. No acute aortic findings suspected. Report was delayed due to malfunction of the carbon furnace operator helper system at the time of the study. IMPRESSION: No peripheral mass or consolidation. Heart, vasculature and central lung markings are prominent. Most of this is due to shallow inspiratio n portable technique. A mild failure or volume overload cannot be excluded.
--- NOTE | 2020-02-09 11:55 | ECHO ---
HEIGHT: 5 ft 3 in WEIGHT: 186 lb 3.2 oz DATE OF STUDY: 02/09/[address]: Jose Ferraro MD 2-DIMENSIONAL: YES M.MODE: YES DOPPLER: YES COLOR FLOW: YES TDS: NO PORTABLE: NO DEFINITY: NO BUBBLE STUDY: NO DIAGNOSIS: ATRIAL FIBRILLATION, CHEST PAIN CARDIAC HISTORY: CATHERIZATION: NO SURGERY: NO PROSTHETIC VALVE: NO PACEMAKER: NO MEASUREMENTS (cm) DIASTOLIC (NORMALS) SYSTOLIC (NORMALS) IVSd 1.1 (0.6-1.2) LA Diam 3.4 (1.9-4.0) LVEF 60% LVIDd 3.3 (3.5-5.7) LVIDs 2.3 (2.0-3.5) %FS 31% LVPWd 1.3 (0.6-1.2) Ao Diam 2.6 (2.0-3.7) 2 DIMENSIONAL ASSESSMENT: RIGHT ATRIUM: NORMAL LEFT ATRIUM: NORMAL RIGHT VENTRICLE: NORMAL LEFT VENTRICLE: LEFT VENTRICULAR HYPERTROPHY TRICUSPID VALVE: NORMAL MITRAL VALVE: NORMAL PULMONIC VALVE: NORMAL AORTIC VALVE: NORMAL PERICARDIAL EFFUSION: NONE AORTIC ROOT: NORMAL LEFT VENTRICULAR WALL MOTION: NORMAL DOPPLER/COLOR FLOW: NORMAL COMMENTS: MILD LEFT VENTRICULAR HYPERTROPHY. NORMAL LEFT VENTRICULAR EJECTION FRACTION AND SIZE. NORMAL LEFT ATRIAL SIZE. NO THROMBUS. TECHNOLOGIST: Melany MATHUR
--- NOTE | 2020-02-09 17:01 | P.DS ---
Admission Date: 02/08/20 Discharge Date: 02/09/20 Primary Care Provider: none Disposition: ROUTINE DISCHARGE Discharge Condition: GOOD Reason for Admission: AFib with RVR, chest pain Consultations: Cardiology - Dr. Wilkinson & Sara Procedures: CXR (02/08/2020): No peripheral mass or consolidation. Heart, vascular tree common central lung markings are prominent. Most of this is due to shallow inspiration portable technique. A mild failure or volume overload cannot be excluded TTE (02/08/20): Mild LV hypertrophy. Normal LV EF (60%), normal left atrial size. No thrombus Problem list AFib with RVR Chest pain HTN CAD Tobacco abuse Cocaine use Brief History of Present Illness: 51-year-old female, PMH: AFib not on any medications, HTN, history of " light heart attack" not requiring any intervention, and uterine fibroids s/p hysterectomy who presents to the ED due to sudden onset of chest pain described as tightness/squeezing, associated with inability to catch her breath. 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 In the ED she was found to be in AFib with RVR to the 130s, responded to 2 doses of 5 mg of Lopressor. Hospital Course: The patient was admitted for further evaluation/management. She was started on p.o. Cardizem 30 mg q.6hr with good response, her heart rate was mostly in the 90s, and she did not have any chest pain since arrival to the ED. Her troponins remained negative, lab work was otherwise unremarkable. Cardiology was consulted who agreed with the Cardizem given history of cocaine use. Her home medications were confirmed with the pharmacy, and patient was supposed to be taking carvedilol 25 mg b.i.d. and diltiazem extended release 120 mg daily which she states she is not taken in a few months. Since her heart rate was better controlled after initiating Cardizem and ACS was ruled out, patient was discharged home. An echocardiogram was performed prior to discharge and was normal as noted above. She was discharged to resume her home medications, new prescriptions were sent for all of them. Her CHADSVASc score was 3 if counting prior "mild heart attack". Risks and benefits were discussed with the patient and she was ultimately discharged on Xarelto. Of note, on admission, patient did report a brief bright red blood per rectum after passing hard stool approximately 1.5 weeks prior to admission, with resolution within 2 days of the incident. She was advised to reestablish with a primary care physician and to monitor for any signs of bleeding. Vital Signs/Physical Exam: Temp Pulse Resp BP Pulse Ox 97.9 F 90 18 126/71 97 02/09/20 12:00 02/09/20 12:03 02/09/20 12:00 02/09/20 12:03 02/09/20 12:00 General: Alert, In no apparent distress, Oriented x3 Respiratory: Clear to auscultation bilaterally, Normal air movement Cardiovascular: No edema, Irregular heart rate/rhythm (HR: 90) Gastrointestinal: Soft and benign, Non-distended, No tenderness Integumentary: No rashes Neurological: Normal speech, Normal affect Laboratory Data at Discharge: WBC 6.5 K/uL (4.3-10.9) 02/09/20 06:26 Hgb 12.8 g/dL (12.0-15.0) 02/09/20 06:26 Hct 38.5 % (36.0-45.0) 02/09/20 06:26 Plt Count 234 K/uL (152-406) 02/09/20 06:26 PT 11.8 SECONDS (9.5-12.5) 02/08/20 13:05 INR 1.00 02/08/20 13:05 Sodium 144 mmol/L (136-145) 02/09/20 06:26 Potassium 3.8 mmol/L (3.5-5.1) 02/09/20 06:26 BUN 11 mg/dL (7-18) 02/09/20 06:26 Creatinine 0.57 mg/dL (0.55-1.3) 02/09/20 06:26 Glucose 94 mg/dL (74-106) 02/09/20 06:26 Magnesium 2.0 mg/dL (1.8-2.4) 02/09/20 06:26 Total Bilirubin 0.4 mg/dL (0.2-1.0) 02/09/20 06:26 AST 39 U/L (15-37) H 02/09/20 06:26 ALT 81 U/L (12-78) H 02/09/20 06:26 Alkaline Phosphatase 77 U/L (45-117) 02/09/20 06:26 Troponin I < 0.02 ng/mL (0.0-0.045) 02/09/20 14:31 Triglycerides 170 mg/dL (<150) H 02/09/20 06:26 Cholesterol 207 mg/dL (<200) H 02/09/20 06:26 HDL Cholesterol 66 mg/dL (40-60) H 02/09/20 06:26 Cholesterol/HDL Ratio 3.14 02/09/20 06:26 Home Medications: Atorvastatin Calcium [Lipitor] 40 mg PO BEDTIME 30 Days #30 tab 02/09/20 Carvedilol [Coreg] 25 mg PO BID 30 Days #60 02/09/20 Diltiazem HCl [Dilt-Xr] 120 mg PO DAILY 30 Days #30 02/09/20 Lisinopril [Zestril] 1 tab PO BID 30 Days #60 02/09/20 Rivaroxaban [Xarelto] 1 tab PO DAILY AT SUPPER 30 Days #30 tablet 02/09/20 New Medications: Carvedilol [Coreg] 25 mg PO BID 30 Days #60 Diltiazem HCl [Dilt-Xr] 120 mg PO DAILY 30 Days #30 Atorvastatin Calcium [Lipitor] 40 mg PO BEDTIME 30 Days #30 tab Rivaroxaban [Xarelto] 1 tab PO DAILY AT SUPPER 30 Days #30 tablet Lisinopril [Zestril] 1 tab PO BID 30 Days #60 Patient Discharge Instructions: Follow up with PCP in 1 week. Follow up with Cardiology - Dr. Ruiz - in 3-4 weeks. Diet: ADA Activity: Ad anita Followup: Stefano Ruiz MD [ACTIVE - CAN ADMIT] - Time spent managing pt's care (in minutes): 40
[2020-02-09 17:14] VITALS: O2SAT 98
[2020-02-09 17:19] VITALS: BP 140/75; TEMP 97.7
--- NOTE | 2020-02-10 11:03 | CON ---
Date of Consultation: 02/09/2020 The patient was admitted on 02/08/[address] Ferraro's service. Reason For Consultation: Atrial fibrillation. History Of Present Illness: Ms. Cerda is a 59-year-old black woman who knows she has history of hypert ension, dyslipidemia, and atrial fibrillation. Has had issues with noncompliance. Came in with ches t pain, palpitation. Her chest pain was not radiating. She has some nausea, diaphoresis, shortness of breath, and palpitation. Her chest discomfort was described as pressure. She denied PND, orthopn ea, pedal edema, or syncope. She denied any fever or chills. She admitted to occasional cocaine use . She did receive IV metoprolol in the emergency room with rate control and pain relief. Past Medical History: Included earlier. Allergies: PENICILLIN. Past Surgical History: Positive for hysterectomy. Medications: She is not taking any medications at present. Review of Systems: Negative. Social History: Positive for occasional cocaine. Family History: Noncontributory. Physical Examination: General: When I saw her, her heart rate was 90, blood pressure was 150/75. HEENT: Negative. Neck: Supple without any bruit, lymphadenopathy, JVD, or thyromegaly. Chest: Clear to auscultation and percussion. CARDIAC: Revealed a regular rhythm and rate without any murmurs, gallops, or rubs. Abdomen: Benign. Extremities: Revealed no clubbing, cyanosis, or edema. Diagnostic Data: Her potassium was 3.4, which was corrected to 4.4. Her troponin was negative. Her BNP was 443. Her cholesterol was 207, triglycerides 170, she had an HDL of 66. Creatinine was norm al. CBC was normal. Last EKG was normal rhythm. Chest x-ray was negative. Impression And Plan: 1.Paroxysmal atrial fibrillation. 2.Hypertension. 3.Dyslipidemia. Ideally, Mrs. Cerda should be on a beta-cheyenne and/or calcium cheyenne. She should be on anticoagulati on with Eliquis or Xarelto. She should have an echocardiogram, which is pending today. She should r eally have an outpatient stress test as well. She has a normal rhythm now and we will see what her e cho shows, but if it is within normal limit, she can go home today on her present regimen, which righ t now include diltiazem, carvedilol, and lisinopril. We should definitely add Xarelto and Eliquis. The case was discussed with Dr. Ferraro. I will be happy to see the patient in the office in the next week or 2. NASRIN Voice ID: [id number] Report ID: [id number]
--- NOTE | 2020-02-12 15:29 | CON ---
Date of Consultation: 02/08/2020 Reason For Consultation: Chest pain and atrial fibrillation with rapid ventricular response. History Of Present Illness: This is a middle-aged female with known history of AFib, hypertension, n oncompliant with medications and is a smoker and used cocaine. Last time she used cocaine was a jon h and half ago was presented with chest pain, left-sided and not related to exertion. She was found to be in atrial fibrillation with rapid ventricular response, rate in 130 to 140. After blocking age nts, it went down to like 110. The patient is feeling better. She claimed that she had a cardiac wo rkup in the past, but no stents were required. Past Medical History: Hypertension, atrial fibrillation. Medications: Refer to reconciliation sheet for detailed list. The patient is not compliant with her medications. Allergies: NO KNOWN DRUG ALLERGIES. Social History: She drinks on occasions. Smokes half a pack per day and uses cocaine occasionally. Family History: No premature coronary artery disease and cancer. Review of Systems: All systems reviewed and they were negative except what mentioned in the HPI. Physical Examination: Vital Signs: Reviewed and they are stable. Head and Neck: Pupils are equal, reactive to light. Intact eye movements. No JVD. No cervical tien nopathy. Neck: Supple. Thyroid is not enlarged. Lungs: Clear to auscultation bilaterally. No rhonchi, wheezing, or crackles. No accessory muscle u se. Heart: Regular rate and rhythm. No extra sounds. Abdomen: Soft, nontender. Bowel sounds positive. No organomegaly. No masses or hernia. No rigidi ty or rebound. Extremities: No edema, clubbing, or cyanosis. Intact pulses. SKIN: No rash. No nodules. Neurologic: Alert, awake, oriented x3. No focal deficits appreciated. Investigations: Troponin is negative. EKG, atrial fibrillation with rapid ventricular response and there is sign of LVH on the EKG. Rest of her labs, sodium 144, creatinine 0.71, BNP is 443, and hemo globin is 12.5. Assessment/plan: 1.Chest pain that is not related to exertion. However, heart rate was fast. Recommend to admit and do serial sets of cardiac enzymes, rule out myocardial infarction. If negative, stress test can be done as an outpatient to further evaluate. 2.Atrial fibrillation with rapid ventricular response. Obtain echocardiogram and if EF is normal, r ecommend Cardizem for rate control. We would avoid other agents as this patient is using cocaine, es pecially beta cheyenne medications. We can start on Cardizem 30 mg p.o. q.8 hours and adjust dose for rate control. 3.Polysubstance abuse. The patient was counseled against cocaine. Thank you for this consultation. /ELIF Voice ID: [id number] Report ID: [id number]
== END 2020-02-09 17:33 | disposition home or self-care (01) | DRG 310 ==
LOC: ER 12:29 → ERHOLD 15:25 → 2ND 15:44
PROVIDERS: ADMIT Hospitalist; ATTEND Hospitalist
DX: I48.0 Paroxysmal atrial fibrillation (principal); I10 Essential (primary) hypertension; I25.10 Atherosclerotic heart disease of native coronary artery without angina pectoris; F17.200 Nicotine dependence, unspecified, uncomplicated; E78.5 Hyperlipidemia, unspecified; F19.10 Other psychoactive substance abuse, uncomplicated; Z88.0 Allergy status to penicillin; Z79.899 Other long term (current) drug therapy; Z91.14 Patient's other noncompliance with medication regimen; Z90.710 Acquired absence of both cervix and uterus
CPT/HCPCS: 36415; 71045; 80048; 80053; 80061; 80076; 80307; 81003; 83036; 83735; 83880; 84132; 84439; 84443; 84484; 85025; 85610; 90471; 93005; 93306; 96372; 96374; 99285; Q2035; U0002

== ENCOUNTER 2020-02-19 19:35 | Emergency (ER) | payer SELFPAY ==
--- OUTSIDE RECORDS SUMMARY | 2020-02-19 19:38 | XMS REPORT | Continuity of Care Document ---
:1960 Author Organization [facility] t Address [address] [place] [address] Care Team Providers Name Role Phone Elvia Mitchell MD Primary Care Physician Susan KHAN, S Attending Clinician Lisha CASTRO Attending Clinician Ellyn Cantu Attending Clinician Russ KHAN Attending Clinician Jaswant Blas DO Attending Clinician Russ KHAN Admitting Clinician Problems This patient has no known problems. Allergies, Adverse Reactions, Alerts This patient has no known allergies or adverse reactions. Social History Social Habit Start Date Stop Date Quantity Comments Source Sex Assigned At [facility] Cigarettes smoked 2018-02-04 2018-02-04 [facility] - current (pack per 00:00:00 00:00:00 [facility] day) - Reported Cigarette 2018-02-04 2018-02-04 [facility] - pack-years 00:00:00 00:00:00 [facility] Tobacco use and 2018-02-04 2018-02-[address] [facility] - exposure 00:00:00 00:00:00 [facility] Alcohol intake 2018-02-04 2018-02-04 [facility] Smoking Status Start Date Stop Date Source Current every day smoker 2018-02-04 00:00:00 [facility] Medications Ordered Filled Start Stop Current Ordering Indication Dosage Frequency Signature Comments Components Source Medication Medication Date Date Medication? Clinician (SIG) Name Name meloxicam Yes 15mg QD Take [address] [facility] [address] [facility] (MOBIC) 15 - by mouth [facility] - MG tablet 14:05: daily. Medica l [facility] [place] traMADol Yes 50mg Take [address] [facility] (ULTRAM) 50 02-04 by mouth [facility] - mg tablet 14:05: every 6 Medic al 16 (six) Center hours as needed for Pain. lisinopril Yes 10mg QD Take [address] [facility] (PRINIVIL,Z 02-04 by mouth [facility] - ESTRIL) 10 14:05: daily. Medic al MG tablet [place] methocarbam Yes 500mg Q.25D Take [address] [facility] 9-28 mg by [facility] - (ROBAXIN) 14:05: mouth 4 Medic al 500 MG 16 (four) Center tablet times daily. ondansetron Yes 4mg Take [address] [facility] (ZOFRAN) 4 - by mouth [facility] - MG tablet 14:05: as needed Med ical 16 for Center Nausea. carvedilol 0 Yes 25mg Take [address] [facility] (COREG) 25 - by mouth 2 [place] es - MG tablet 14:05: (two) Medical 16 times Center daily with breakfast and dinner. aspirin 81 2017-0 Yes 81mg QD Take [address] MG EC 02-04 by mouth [facility] - tablet 14:05: daily. Medical [place] atorvastati 0 Yes 40mg QD Take [address] [facility] (LIPITOR) - by mouth [facility] - 40 MG 14:05: daily. Medical tablet [place] dilTIAZem 0 Yes 240mg QD Take [address] [facility] [address] (CARTIA XT) 9-28 mg by [facility] - 240 MG 24 14:05: mouth Medical hr capsule 16 daily. Center Procedures This patient has no known procedures. Encounters Start End Encounter Admission Attending Care Care Encounter Source Date/Time Date/Time Type Type Clinicians Facility Department ID 2019-12-08 2019-12-08 Emergency Susan [facility] [id number] 04:24:56 05:30:00 Henry [place] [id number] [place] [id number] [place] [id number] 2019-07-19 2019-07-19 Transition Yolie Husain [id number] 00:00:00 00:00:00 of Care Rubia Moore [id number] [place] [id number] 2019-07-15 [facility] [id number] 16:14:47 15:37:00 Encounter Gabby Solano [place] [id number] [place] [id number] [place] [id number] 2019-07-12 2019-07-13 [facility] [id number] 20:22:08 08:33:00 Babita [place] [id number] [place] [id number] [place] [id number] Results Test Description Test Time Test Comments Results Result [facility] e Comments [place], TURF MANAGER IN 2018-02-04 Reason for FINAL REPORT OR/30 MINUTE 15:19:00 exam:->RIGHT L5 S1 PATIENT ID: INCREMENTS TRANSFORAMINAL [id number] TECHNICAL EPIDURAL INJECTION NOTE-C-ARM FLUOROSCOPY C-arm utilized with no radiologist in attendance. Fluoroscopy time 21.9 seconds. Cumulative dose 559.1 mrad Signed: Theo Hernandezeport Verified Date/Time: 02/04/2018 15:19:32 Reading Location: [address] Radiology Reading Room
--- OUTSIDE RECORDS SUMMARY | 2020-02-19 19:38 | XMS REPORT | Clinical Summary ---
:1960 Author Organization [facility] Address [address] [place] [address] Care Team Providers Name Role Phone Elvia Mitchell MD Primary Care Provider Allergies No Known Allergies Medications Medication Sig Dispensed Refills Start Date End Date Status meloxicam (MOBIC) 15 Take 15 mg by 0 Active MG tablet mouth daily. traMADol (ULTRAM) 50 Take 50 mg by 0 Active mg tablet mouth every 6 (six) hours as needed for Pain. lisinopril Take 10 mg by 0 Activ e (PRINIVIL,ZESTRIL) 10 mouth daily. MG tablet methocarbamol Take 500 mg by 0 A ctive (ROBAXIN) 500 MG mouth 4 (four) tablet times daily. ondansetron (ZOFRAN) 4 Take 4 mg by mouth 0 Active MG tablet as needed for Nausea. carvedilol (COREG) 25 Take 25 mg by 0 Active MG tablet mouth 2 (two) times daily with breakfast and dinner. aspirin 81 MG EC Take 81 mg by 0 Active tablet mouth daily. atorvastatin (LIPITOR) Take 40 mg by 0 Active 40 MG tablet mouth daily. dilTIAZem (CARTIA XT) Take 240 mg by 0 Active 240 MG 24 hr capsule mouth daily. Active Problems No known active problems Social History Tobacco Use Types Packs/Day Years Used Date Current Every Day Smoker 0.5 20 Smokeless Tobacco: Never Used Tobacco Cessation: Ready to Quit: Yes; C ounseling Given: Yes Alcohol Use Drinks/Week oz/Week Comments Yes 6 Glasses of wine 6.0 Sex Assigned at Date Recorded Not on file Last Filed Vital Signs Not on file Plan of Treatment Not on file Results Not on fileafter 02/18/2019
[2020-02-19] MEDS ORDERED: HYDROCODONE/APAP 5/325 MG TAB ONE (20:27)
--- NOTE | 2020-02-19 20:50 | RAD REPORT ---
EXAM DESCRIPTION: US - Extremity Venous Uni Ltd - 02/19/2020 8:43 pm CLINICAL HISTORY: Pain;Swelling Leg swelling and edema. COMPARISON: No comparisons FINDINGS: Right lower extremity venous system was interrogated with Doppler technique. Normal flow, compressibility and augmentation was noted. There is no DVT present.5 cm Ledesma's cyst. IMPRESSION: No evidence of right lower extremity deep venous thrombosis.
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
--- NOTE | 2020-02-19 20:54 | ER ---
Nurse's Notes [facility] Name: Huyen Cerda Age: 59 yrs Sex: Female : 1960 Arrival Date: 02/19/2020 Time: 19:49 Bed 7 Private MD: Diagnosis: Pain in right lower leg Presentation: 02/18 19:52 Chief complaint: Patient states: Hit R leg on the table last Wednesday. There is knot on ca1 my R matthews, swelling off and on on the R foot, there is redness and swelling. Pain on the R leg. I am on blood thinners since last week for A-fib, so the redness all around my foot bothers me. Coronavirus screen: Client denies travel out of the [place] in the last 14 days. At this time, the client does not indicate any symptoms associated with coronavirus-19. Ebola Screen: Patient negative for fever greater than or equal to 101.5 degrees Fahrenheit, and additional compatible Ebola Virus Disease symptoms Patient denies exposure to infectious person. Patient denies travel to an Ebola-affected area in the 21 days before illness onset. No symptoms or risks identified at this time. Initial Sepsis Screen: Does the patient meet any 2 criteria? No. Patient's initial sepsis screen is negative. Does the patient have a suspected source of infection? No. Patient's initial sepsis screen is negative. Risk Assessment: Do you want to hurt yourself or someone else? Patient reports no desire to harm self or others. Onset of symptoms was February 19, 2020. 19:52 Method Of Arrival: Ambulatory ca1 19:52 Acuity: CINDY 4 ca1 Historical: - Allergies: 19:58 PENICILLINS; ca1 - Home Meds: 19:58 carvedilol 25 mg oral tab 1 tab 2 times per day [Active]; diltiazem HCl 30 mg Oral tab ca1 1 tab daily [Active]; atorvastatin 40 mg oral tab 1 tab once daily [Active]; Xarelto 20 mg oral tab 1 tab once daily [Active]; lisinopril 20 mg Oral tab 1 tab once daily [Active]; - PMHx: 19:58 Atrial Fib; Hyperlipidemia; Hypertension; ca1 - PSHx: 19:58 Hysterectomy; ca1 - Immunization history:: Adult Immunizations up to date, Pneumococcal vaccine is up to date, Flu vaccine is up to date. - Social history:: Smoking status: Patient reports the use of cigarette tobacco products, smokes one-half pack cigarettes per day. Screenin:05 Abuse screen: Denies threats or abuse. Nutritional screening: No deficits noted. jb4 Tuberculosis screening: No symptoms or risk factors identified. Fall Risk None identified. Assessment: 20:05 General: Appears in no apparent distress. uncomfortable, Behavior is calm, cooperative, jb4 appropriate for age. Pain: Complains of pain in right matthews Pain does not radiate. Pain currently is 7 out of 10 on a pain scale. Quality of pain is described as soar. Neuro: Level of Consciousness is awake, alert, obeys commands, Oriented to person, place, time, situation. Cardiovascular: Patient's skin is warm and dry. Respiratory: Airway is patent Respiratory effort is even, unlabored, Respiratory pattern is regular, symmetrical. GI: No signs and/or symptoms were reported involving the gastrointestinal system. : No signs and/or symptoms were reported regarding the genitourinary system. EENT: No signs and/or symptoms were reported regarding the EENT system. Derm: Skin is intact, Skin is pink, warm \T\ dry. Musculoskeletal: Circulation, motion, and sensation intact. Range of motion:. 21:01 Reassessment: Patient appears in no apparent distress at this time. Patient and/or jb4 family updated on plan of care and expected duration. Pain level reassessed. Patient is alert, oriented x 3, equal unlabored respirations, skin warm/dry/pink. Vital Signs: 19:52 BP 150 / 95; Pulse 78; Resp 17 S; Temp 97.8(TE); Pulse Ox 96% on R/A; Weight 83.01 kg ca1 (R); Height 5 ft. 3 in. (160.02 cm) (M); Pain 5/10; 20:30 BP 168 / 96; Pulse 65; Resp 16; Pulse Ox 99% on R/A; jb4 19:52 Body Mass Index 32.42 (83.01 kg, 160.02 cm) ca1 ED Course: 19:49 Patient arrived in ED. am2 19:56 Triage completed. ca1 19:58 Arm band placed on right wrist. ca1 20:00 Barbara Wilburn FNP-C is PHCP. kb 20:00 Henry Henning MD is Attending Physician. kb 20:05 Patient has correct armband on for positive identification. Bed in low position. Call jb4 light in reach. Side rails up X 1. Pulse ox on. NIBP on. 20:07 Wili Muniz, RN is Primary Nurse. jb4 20:43 Extremity Venous Unilateral Ltd In Process Unspecified. EDMS 21:02 No provider procedures requiring assistance completed. Patient did not have IV access jb4 during this emergency room visit. Administered Medications: 20:18 Drug: [place] 5 mg-325 mg 1 tabs Route: PO; jb4 21:02 Follow up: Response: No adverse reaction; Pain is decreased; RASS: Alert and Calm (0) jb4 Outcome: 20:53 Discharge ordered by . kb 21:02 Discharged to home ambulatory. jb4 21:02 Condition: stable 21:02 Discharge instructions given to patient, Instructed on discharge instructions, follow up and referral plans. Demonstrated understanding of instructions, follow-up care. 21:02 Patient left the ED. jb4 Signatures: Dispatcher [employer] EDPA Barbara Wilburn, PRINCIPAL ENGINEER-C PRINCIPAL ENGINEER-Ckb Wili Muniz, RN RN jb4 Danika Rosales am2 Juana Bro, RN RN ca1
[2020-02-19 21:53] VITALS: TEMP 97.8
[2020-02-19 21:54] VITALS: BP 168/96; O2SAT 99
== END 2020-02-19 21:02 | disposition home or self-care (01) ==
LOC: ER 19:35
DX: M79.661 Pain in right lower leg (principal); I10 Essential (primary) hypertension; E78.5 Hyperlipidemia, unspecified; I48.91 Unspecified atrial fibrillation; Z79.01 Long term (current) use of anticoagulants; Z88.0 Allergy status to penicillin
CPT/HCPCS: 93971; 99283

== ENCOUNTER 2020-11-06 02:17 | Inpatient (IN) | payer SELFPAY ==
--- OUTSIDE RECORDS SUMMARY | 2020-11-06 02:20 | XMS REPORT | Continuity of Care Document ---
:[address] [facility] t Address [address] [place] [address] Care Team Providers Name Role Phone Elvia [...] Date Quantity Comments Source Sex Assigned At [facility] Cigarettes smoked 2018-02-04 2018-02-04 [facility] - current (pack per 00:00:00 00:00:00 [facility] day) - Reported Cigarette 2018-02-04 2018-02-04 [facility] - pack-years 00:00:00 00:00:00 [facility] Tobacco use and 2018-02-04 2018-02-[address] [facility] - exposure 00:00:00 00:00:00 [facility] Alcohol intake 2018-02-04 2018-02-04 [facility] - 00:[facility]:00 00:00:00 of alcohol [facility] (finding) Smoking Status Start Date Stop Date Source Current every day smoker 2018-02-04 00:00:00 [facility] Medications Ordered Filled Start Stop Current Ordering Indication Dosage Frequency Signature Comments Components Source Medication Medication Date Date Medication? Clinician (SIG) Name Name lisinopril Yes 10mg QD Take [address] (PRINIVIL,Z - by mouth Luke [facility] - ESTRIL) 10 14:05: daily. Medic al MG tablet 16 [place] methocarbam Yes 500mg Q.25D Take [address] [facility] [address] [facility] 9-28 mg by [facility] - (ROBAXIN) 14:05: mouth 4 Medic al 500 MG 16 (four) Center tablet times daily. ondansetron 0 Yes 4mg Take [address] (ZOFRAN) 4 02-04 by [facility] - MG tablet 14:05: as needed Med ical 16 for Center Nausea. carvedilol 0 Yes 25mg Take [address] (COREG) 25 - by mouth 2 [facility] [facility] - MG tablet 14:05: (two) Medical 16 times Center daily with breakfast and dinner. aspirin 81 0 Yes 81mg QD Take [address] MG EC 02-04 by mouth [facility] - tablet 14:05: daily. Medical 16 [place] atorvastati 0 Yes 40mg QD Take [address] [facility] (LIPITOR) - by mouth Luke [facility] - 40 MG 14:05: daily. Medical tablet 16 [place] dilTIAZem 0 Yes 240mg QD Take [address] (CARTIA XT) 9-28 mg by [facility] - 240 MG 24 14:05: mouth Medical hr capsule 16 daily. [place] meloxicam 0 Yes 15mg QD Take [address] (MOBIC) 15 - by mouth [facility] - MG tablet 14:05: daily. Medica l 16 [place] traMADol 0 Yes 50mg Take [address] [facility] [facility] (ULTRAM) 50 - by mouth Luke [facility] - mg tablet 14:05: every 6 Medic al 16 (six) Center hours as needed for Pain. Procedures This patient has no known procedures. Plan of Care Planned Activity Planned Date Details Comments Source Future Scheduled 2020-01-09 INFLUENZA VACCINE (#1) [facility] - Test 00:00:00 [code = INFLUENZA Medical Ce nter VACCINE (#1)] Future Scheduled [address] [facility] - Test 00:00:00 (procedure) [code = Medical Center 03077196] Future Scheduled [address] [facility] - Test 00:00:00 malignant neoplasm of Medica l Center cervix (procedure) [code = 310160679] Future Scheduled [address] [facility] - Test 00:00:00 0-64 YRS (1 of 1 - Medical C enter PPSV23) [code = PNEUMOCOCCAL VACCINE 0-64 YRS (1 of 1 - PPSV23)] Future Scheduled [address] [facility] - Test 00:00:00 malignant neoplasm of Medica l Center breast (procedure) [code = 308754655] Future Scheduled [address] [facility] - Test 00:00:00 malignant neoplasm of Medica l Center colon (procedure) [code = 134752310] Encounters Start End Encounter Admission Attending Care Care Encounter Source Date/Time Date/Time Type Type Clinicians Facility Department ID 2019-12-08 2019-12-08 Emergency [facility] [id number] 04:24:56 05:30:00 Henry Guaman [id number] [place] [id number] [place] [id number] 2019-07-19 2019-07-19 Transition Yolie Husain [id number] 00:00:00 00:00:00 of Care Rubia Moore [id number] [place] [id number] 2019-07-15 2019-07-18 [facility] [id number] 16:14:47 15:37:00 Encounter Gabby Solano [id number] [place] [id number] [place] [id number] 2019-07-12 2019-07-13 Emergency HERBIE Blas [id number] 20:22:08 08:33:00 Babita Guaman [id number] [place] [id number] [place] [id number] Results Test Description Test Time Test Comments Results Result Sour e Comments FL, WELDER REPAIR IN 2018-02-04 Reason for FINAL REPORT OR/30 MINUTE 15:19:00 exam:->RIGHT L5 S1 PATIENT ID: [facility] [id number] TECHNICAL EPIDURAL INJECTION NOTE-C-ARM FLUOROSCOPY C-arm utilized with no radiologist in attendance. Fluoroscopy time 21.9 seconds. Cumulative dose 559.1 mrad Signed: Theo Hernandez MDReport Verified Date/Time: 02/04/2018 15:19:32 Reading Location: [address] Radiology Reading Room
[2020-11-06] MEDS ORDERED: METOPROLOL TARTRATE 5 MG/5 ML INJ IV ONE (02:48)
[2020-11-06] MEDS ORDERED: NA CHLORIDE 0.9% 1,000 ML ONE (02:48)
[2020-11-06 02:57] LABS: Basophils % 0.9 % (0-1.3); Hematocrit 37.7 % (36.0-45.0); Lymphocytes % 36.4 % (15.3-44.8); MPV 9.2 fL (7.6-11.3); Protime INR 1.04; RBC Red Blood Cell Count 3.91 M/uL (3.86-4.86)
[2020-11-06 03:10] LABS: ALT/SGPT 78 U/L (12-78); AST/SGOT 40 U/L (15-37); Albumin 3.5 g/dL (3.4-5.0); Alkaline Phosphatase 103 U/L (45-117); BUN Blood Urea Nitrogen 15 mg/dL (7-18); Bicarbonate 27 mmol/L (21-32); Bilirubin Direct 0.1 mg/dL (0-0.2); Bilirubin Total 0.4 mg/dL (0.2-1.0); Glucose Level 132 mg/dL (74-106); Magnesium 1.8 mg/dL (1.8-2.4); NT PRO-BNP 929 pg/mL (<125); Potassium 3.7 mmol/L (3.5-5.1); Protein, Total 7.5 g/dL (6.4-8.2); Sodium Level 143 mmol/L (136-145); Troponin (Emerg Dept Use Only) < 0.02 ng/mL (0.0-0.045)
[2020-11-06 03:14] LABS: Urine Blood Negative (Negative); Urine Glucose Negative (Negative); Urine Protein Negative (Negative)
--- NOTE | 2020-11-06 03:54 | EDPHYS ---
Physician Documentation [facility] Name: Huyen Cerda Age: 60 yrs Sex: Female : 1960 Arrival Date: 11/06/2020 Time: 02:23 Bed 4 Private MD: ED Physician Bessy Rizo HPI: 11/06 02:33 This 60 yrs old Black Female presents to ER via EMS with complaints of Chest Pain > 30 ma2 y/o. 02:33 The patient or guardian reports chest pain that is located primarily in the substernal ma2 area. Onset: gradually, 1 day(s) ago. Associated signs and symptoms: Pertinent negatives: diaphoresis, headache, lightheadedness, nausea. Severity of pain: At its worst the pain was very mild mild in the emergency department the pain is unchanged. The patient has experienced similar episodes in the past. Historical: - Allergies: 02:27 PENICILLINS; em - PMHx: 02:27 Atrial Fib; Hyperlipidemia; Hypertension; em - PSHx: :27 None; em - Immunization history:: Adult Immunizations up to date. - Social history:: Smoking status: Patient reports the use of cigarette tobacco products, smokes one-half pack cigarettes per day. - Family history:: not pertinent. ROS: 02:33 Constitutional: Negative for fever, chills, and weight loss. ma2 02:33 All other systems are negative. Exam: 02:33 Constitutional: This is a well developed, well nourished patient who is awake, alert, ma2 and in no acute distress. Head/Face: Normocephalic, atraumatic. Eyes: Pupils equal round and reactive to light, extra-ocular motions intact. Lids and lashes normal. Conjunctiva and sclera are non-icteric and not injected. Cornea within normal limits. Periorbital areas with no swelling, redness, or edema. ENT: Nares patent. No nasal discharge, no septal abnormalities noted. Tympanic membranes are normal and external auditory canals are clear. Oropharynx with no redness, swelling, or masses, exudates, or evidence of obstruction, uvula midline. Mucous membranes moist. Neck: Trachea midline, no thyromegaly or masses palpated, and no cervical lymphadenopathy. Supple, full range of motion without nuchal rigidity, or vertebral point tenderness. No Meningismus. Chest/axilla: Normal chest wall appearance and motion. Nontender with no deformity. No lesions are appreciated. Cardiovascular: tachycardia, irregular rhythm with a normal S1 and S2. No gallops, murmurs, or rubs. Normal PMI, no JVD. No pulse deficits. Respiratory: Lungs have equal breath sounds bilaterally, clear to auscultation and percussion. No rales, rhonchi or wheezes noted. No increased work of breathing, no retractions or nasal flaring. Abdomen/GI: Soft, non-tender, with normal bowel sounds. No distension or tympany. No guarding or rebound. No evidence of tenderness throughout. Skin: Warm, dry with normal turgor. Normal color with no rashes, no lesions, and no evidence of cellulitis. MS/ Extremity: Pulses equal, no cyanosis. Neurovascular intact. Full, normal range of motion. Neuro: Awake and alert, GCS 15, oriented to person, place, time, and situation. Cranial nerves II-XII grossly intact. Motor strength 5/5 in all extremities. Sensory grossly intact. Cerebellar exam normal. Normal gait. Vital Signs: 02:23 BP 133 / 91; Pulse 107; Resp 18; Temp 97.7; Pulse Ox 98% on R/A; Weight 83.01 kg; em Height 5 ft. 3 in. (160.02 cm); Pain 9/10; 03:40 BP 132 / 82; Pulse 96; Resp 16 S; Pulse Ox 98% on R/A; bb 04:34 BP 107 / 77; Pulse 93; Resp 16; Pulse Ox 97% on R/A; bb 05:17 BP 129 / 75; Pulse 97; Resp 20; Pulse Ox 98% on R/A; bb 06:44 BP 141 / 93; Pulse 94; Resp 16 S; Pulse Ox 96% on R/A; bb 07:46 BP 119 / 87; Pulse 91; Resp 18; Pulse Ox 98% on R/A; hb 02:23 Body Mass Index 32.42 (83.01 kg, 160.02 cm) em MDM: 02:26 Patient medically screened. ma2 02:33 Differential diagnosis: abnormal EKG, anxiety, stable angina. ma2 03:52 The patient was given aspirin in the Emergency Department. Data reviewed: vital signs, ma2 nurses notes. Counseling: I had a detailed discussion with the patient and/or guardian regarding: the historical points, exam findings, and any diagnostic results supporting the discharge/admit diagnosis, the presence of at least one elevated blood pressure reading (>120/80) during this emergency department visit, the need for outpatient follow up. Response to treatment: the patient's symptoms have markedly improved after treatment, given metoprolol 5 iv once by ems and another dose given by us, rate is controlled, no chest pain at this time . 11/06 02:26 Order name: Basic Metabolic Panel hi11/06 02:26 Order name: CBC with Diff; Complete Time: 03:33 11/06 02:26 Order name: LFT's; Complete Time: 03:33 11/06 02:26 Order name: Magnesium; Complete Time: 03:33 11/06 02:26 Order name: NT PRO-BNP; Complete Time: 03:33 11/06 02:26 Order name: PT-INR; Complete Time: 03:33 11/06 02:26 Order name: Troponin (emerg Dept Use Only); Complete Time: 03:33 11/06 02:26 Order name: XRAY Chest (1 view) 11/06 02:26 Order name: EKG; Complete Time: 02:27 11/06 02:27 Order name: Basic Metabolic Panel; Complete Time: 03:33 EDMS 11/06 03:13 Order name: Urine Dipstick-Ancillary; Complete Time: 03:33 EDMS 11/06 02:26 Order name: Cardiac monitoring; Complete Time: :57 11/06 02:26 Order name: EKG - Nurse/Tech; Complete Time: :57 11/06 02:26 Order name: IV Saline Lock; Complete Time: :57 11/06 02:26 Order name: Labs collected and sent; Complete Time: :57 11/06 02:26 Order name: O2 Per Protocol; Complete Time: :57 11/06 02:26 Order name: O2 Sat Monitoring; Complete Time: 02:58 11/06 04:54 Order name: CONS Physician Consult EDWA Administered Medications: 02:40 Drug: NS 0.9% 1000 ml Route: IV; Rate: 125 ml/hr; Site: right antecubital; bb 02:40 Drug: Metoprolol 5 mg Route: IVP; Site: right antecubital; bb 03:30 Follow up: Response: No adverse reaction bb 05:15 Drug: Aspirin Chewable Tablet 324 mg Route: PO; bb 06:45 Follow up: Response: No adverse reaction bb Disposition Summary: 11/06/20 03:54 Hospitalization Ordered Hospitalization Status: Inpatient Admission ma2 Provider: Bessy Murillo Location: Telemetry/MedSurg (Inpatient) ma2 Condition: Stable ma2 Problem: new ma2 Symptoms: are unchanged ma2 Bed/Room Type: Standard hi2 Room Assignment: 407(11/06/20 05:49) tl1 Diagnosis - Tachycardia, unspecified - atrial fibrilation ma2 Forms: - Medication Reconciliation Form ma2 - SBAR form ma2 Signatures: Dispatcher [employer] Ravin Flores RN RN em Ballard, Brenda, RN RN bb Lasagna, Tonya, RN RN tl1 Bessy Rizo MD MD ma2 Corrections: (The following items were deleted from the chart) 05:49 03:54 ma2 tl1
--- NOTE | 2020-11-06 03:54 | ER ---
Nurse's Notes [facility] Name: Huyen Cerda Age: 60 yrs Sex: Female : 1960 Arrival Date: 11/06/2020 Time: 02:23 Bed 4 Private MD: Diagnosis: Tachycardia, unspecified-atrial fibrilation Presentation: 11/06 02:23 Chief complaint: EMS states: called out for chest tightness after using the restroom, em HR 140's Afib RVR on the monitor and was given 5 mg IV metoprolol x 1, HR between 80's - 110's after medication, pt still reports chest tightness and shortness of breath, 20 RAC. Coronavirus screen: Client denies travel out of the [place] in the last 14 days. Ebola Screen: Patient negative for fever greater than or equal to 101.5 degrees Fahrenheit, and additional compatible Ebola Virus Disease symptoms Patient denies exposure to infectious person. Patient denies travel to an Ebola-affected area in the 21 days before illness onset. No symptoms or risks identified at this time. Initial Sepsis Screen: Does the patient meet any 2 criteria? HR > 90 bpm. No. Patient's initial sepsis screen is negative. Does the patient have a suspected source of infection? No. Patient's initial sepsis screen is negative. Risk Assessment: Do you want to hurt yourself or someone else? Patient reports no desire to harm self or others. Onset of symptoms was November 06, 2020. 02:23 Method Of Arrival: EMS: [facility] em 02:23 Acuity: CINDY 2 em Historical: - Allergies: 02: PENICILLINS; em - PMHx: 02: Atrial Fib; Hyperlipidemia; Hypertension; em - PSHx: 02: None; em - Immunization history:: Adult Immunizations up to date. - Social history:: Smoking status: Patient reports the use of cigarette tobacco products, smokes one-half pack cigarettes per day. - Family history:: not pertinent. Screenin:30 Abuse screen: Denies threats or abuse. Nutritional screening: No deficits noted. bb Tuberculosis screening: No symptoms or risk factors identified. Fall Risk None identified. Assessment: 02:30 General: Appears in no apparent distress. uncomfortable, Behavior is cooperative, bb anxious. Pain: Complains of pain in chest Pain does not radiate. Pain began suddenly. Neuro: Level of Consciousness is awake, alert, obeys commands, Oriented to person, place, time, situation. Cardiovascular: Heart tones S1 S2 present Capillary refill < 3 seconds Patient's skin is warm and dry. Rhythm is atrial fibrillation with rapid ventricular response. Respiratory: Airway is patent Respiratory effort is shallow, Respiratory pattern is regular. GI: No signs and/or symptoms were reported involving the gastrointestinal system. Derm: Skin is dry, Skin is normal, Skin temperature is warm. Musculoskeletal: Circulation, motion, and sensation intact. 03:07 Reassessment: pt assisted to bathroom via wheelchair by this RN. bb 03:39 Reassessment: Patient is alert, oriented x 3, equal unlabored respirations, skin bb warm/dry/pink. pt resting quietly, IV site intact, patent with fluids infusing, awaiting diagnostic results. 03:43 Reassessment: Dr Ponce at bedside for discussion of findings and recommendations pt bb to be admitted for further observation and treatment pt verbalized understanding of and agrees to plan of care. 04:37 Reassessment: Patient is alert, oriented x 3, equal unlabored respirations, skin bb warm/dry/pink. Manuel SCOTT at bedside for discussion of admission. 05:15 Reassessment: Patient is alert, oriented x 3, equal unlabored respirations, skin bb warm/dry/pink. pt assisted to bathroom via wheelchair by this RN on return pt c/o chest pain Dr Ponce notified. 06:38 Reassessment: assisted pt back to bed after returning from the bathroom via wheelchair bb pt states she is a little short of breath. 07:30 Reassessment: Patient appears in no apparent distress at this time. No changes from hb previously documented assessment. Patient and/or family updated on plan of care and expected duration. Pain level reassessed. Vital Signs: 02:23 BP 133 / 91; Pulse 107; Resp 18; Temp 97.7; Pulse Ox 98% on R/A; Weight 83.01 kg; em Height 5 ft. 3 in. (160.02 cm); Pain 9/10; 03:40 BP 132 / 82; Pulse 96; Resp 16 S; Pulse Ox 98% on R/A; bb 04:34 BP 107 / 77; Pulse 93; Resp 16; Pulse Ox 97% on R/A; bb 05:17 BP 129 / 75; Pulse 97; Resp 20; Pulse Ox 98% on R/A; bb 06:44 BP 141 / 93; Pulse 94; Resp 16 S; Pulse Ox 96% on R/A; bb 07:46 BP 119 / 87; Pulse 91; Resp 18; Pulse Ox 98% on R/A; hb 02:23 Body Mass Index 32.42 (83.01 kg, 160.02 cm) em ED Course: 02:23 Patient arrived in ED. em 02:26 Bessy Rizo MD is Attending Physician. ma2 02:27 Triage completed. em 02:27 Arm band placed on. em 02:30 Patient has correct armband on for positive identification. Placed in gown. Bed in low bb position. Call light in reach. Side rails up X 1. quality assurance monitor chassis on. Pulse ox on. NIBP on. Warm blanket given. 02:30 Maintain EMS IV. Dressing intact. Good blood return noted. Site clean \T\ dry. Gauge \T\ bb site: 20 g R AC. 02:40 XRAY Chest (1 view) In Process Unspecified. EDMS 02:56 Lisa Maradiaga RN is Primary Nurse. bb 03:42 No provider procedures requiring assistance completed. Patient admitted, IV remains in bb place. Patient maintains SpO2 saturation greater than 95% on room air. 03:53 Bessy Murillo MD is Hospitalizing Provider. ma2 07:32 Primary Nurse role handed off by Lisa Maradiaga RN bd Administered Medications: 02:40 Drug: NS 0.9% 1000 ml Route: IV; Rate: 125 ml/hr; Site: right antecubital; bb 02:40 Drug: Metoprolol 5 mg Route: IVP; Site: right antecubital; bb 03:30 Follow up: Response: No adverse reaction bb 05:15 Drug: Aspirin Chewable Tablet 324 mg Route: PO; bb 06:45 Follow up: Response: No adverse reaction bb Outcome: 03:42 Instructed on the need for admit. bb 03:54 Decision to Hospitalize by Provider. ma2 07:46 Admitted to Tele accompanied by tech, via wheelchair, room 407, with chart, Report hb called to [place] CASTRO 07:46 Condition: stable 08:03 Patient left the ED. hb Signatures: Dispatcher [employer] Radha Toth Edgar, Lisa Perez RN, RN RN Romana Sanchez RN RN Bessy Ricardo MD MD ma2
--- NOTE | 2020-11-06 05:13 | P.HP ---
Certification for Inpatient Patient admitted to: Observation With expected LOS: <2 Midnights Patient will require the following post-hospital care: None Practitioner: I am a practitioner with admitting privileges, knowledge of patient current condition, hospital course, and medical plan of care. Services: Services provided to patient in accordance with Admission requirements found in Title 42 Section 412.3 of the Code of Federal Regulations <Manuel Proctor - Last Filed: 11/06/20 05:06> Patient History Date of Service: 11/06/20 Reason for admission: afib with RVR History of Present Illness: Ms. Cerda is a 60 yo F with afib on Xarelto, HTN, and CAD here today for 10/10 sternal chest pain beginning at 1 am. She says she woke up to use the bathroom and when she went to lay back down she started to feel a pulling sensation in her chest. She says she has not had pain like this before. Also reports SOB and palpitations. Denies dizziness. On presentation, she was found to be in afib with RVR and responded to IV metoprolol. Now rate controlled. She said she did not take her medications last night. She has not recently seen cardiology. She smokes 1/2 ppd. Of note, 1.5 weeks ago she said she had some blood in her stool. She had a similar complaint on previous admission. - Past Medical/Surgical History Diabetic: No -: Chronic AFib -: HTN -: CAD -: Hysterectomy - Family History Mother -: Heart disease Notes: quadruple bypass - Social History Smoking Status: Current every day smoker Smoking therapy provided: Yes Patient receptive to therapy: No Alcohol use: Yes CD- Drugs: Yes Caffeine use: No Place of Residence: Home <Ninfa Proctorrahel Kang - Last Filed: 11/06/20 05:06> Date of Service: 11/11/20 <Bessy Murillo - Last Filed: 11/11/20 04:34> Allergies Penicillins Allergy (Verified 02/08/20 23:42) Unknown Home Medications: Atorvastatin Calcium [Lipitor] 40 mg PO BEDTIME 30 Days #30 tab 02/09/20 Carvedilol [Coreg] 25 mg PO BID 30 Days #60 02/09/20 Lisinopril [Zestril] 1 tab PO BID 30 Days #60 02/09/20 Rivaroxaban [Xarelto] 1 tab PO DAILY AT SUPPER 30 Days #30 tablet 02/09/20 Atorvastatin Calcium [Lipitor] 40 mg PO BEDTIME #30 tab 11/07/20 Cefdinir [Omnicef] 300 mg PO BID #14 capsule 11/07/20 Diltiazem Cd [Cardizem Cd*] 120 mg PO BID #60 cap 11/07/20 Melatonin 5 mg PO BEDTIME PRN PRN #14 tablet 11/07/20 Review of Systems 10-point ROS is otherwise unremarkable Respiratory: Shortness of Breath, SOB with Excertion Cardiovascular: Chest Pain, Palpitations <Manuel Proctor - Last Filed: 11/06/20 05:06> Physical Examination - Physical Exam General: Alert, In no apparent distress HEENT: Atraumatic, PERRLA, Mucous membr. moist/pink, EOMI, Sclerae nonicteric Neck: Supple, 2+ carotid pulse no bruit, No LAD, Without JVD or thyroid abnormality Respiratory: Clear to auscultation bilaterally, Normal air movement Cardiovascular: No gallops, No rubs, Other (afib, rate controlled ), Irregular heart rate/rhythm Capillary refill: <2 Seconds Gastrointestinal: Normal bowel sounds, No tenderness Musculoskeletal: No tenderness Integumentary: No rashes Neurological: Normal speech, Normal strength at 5/5 x4 extr, Normal tone, Normal affect Lymphatics: No axilla or inguinal lymphadenopathy - Studies Laboratory Data (last 24 hrs) 11/06/20 02:25: PT 12.0, INR 1.04 11/06/20 02:25: WBC 5.60, Hgb 12.4, Hct 37.7, Plt Count 215 11/06/20 02:25: Sodium 143, Potassium 3.7, BUN 15, Creatinine 0.55, Glucose 132 H, Magnesium 1.8, Total Bilirubin 0.4, AST 40 H, ALT 78, Alkaline Phosphatase 1 03 <Manuel Proctor - Last Filed: 11/06/20 05:06> Assessment and Plan - Problems (Diagnosis) (1) Afib Status: Acute Qualifiers: Atrial fibrillation type: paroxysmal Qualified Code(s): I48.0 - Paroxysmal atrial fibrillation (2) HTN (hypertension) Status: Chronic Qualifiers: Hypertension type: essential hypertension Qualified Code(s): - (3) CAD (coronary artery disease) Status: Chronic Qualifiers: Coronary Disease-Associated Artery/Lesion type: [place] artery [place] vs. transplanted heart: [place] heart Associated angina: unspecified whether angina present Qualified Code(s): I25.10 - Atherosclerotic heart disease of [place] coronary artery without angina pectoris (4) Tobacco use Status: Chronic (5) Chest pain Status: Acute Qualifiers: Chest pain type: unspecified Qualified Code(s): R07.9 - Chest pain, unspecified - Plan cardiology consulted on telemetry ECHO scheduled for the AM trend troponins received ASA in the ED, continue home Xarelto will reconcile and continue home carvedilol, diltiazem, atorvastatin, and lisinopril lipid panel and thyroid panel pending morphine and NTG prn nicotine patch, UDS pending will need to be scheduled for outpatient colonoscopy Discharge Plan: Home Plan to discharge in: 24 Hours - Advance Directives Does patient have a Living Will: No Does patient have a Durable POA for Healthcare: No - Code Status/Comfort Care Code Status Assessed: Yes (full code ) Critical Care: No Time Spent Managing Pts Care (In Minutes): 70 <Manuel Proctor - Last Filed: 11/06/20 05:06> Date of Service: 11/06/20 Subjective: Agree with plan of care as mentioned above Physical Examination: Vitals: Afebrile vital signs are stable Physical exam: Cardiovascular: Within normal limits. Lungs: Within normal limits Abdomen: Within normal limits Neuro: Awake, alert, oriented to person place and time Assessment: 1. Atrial fibrillation with rapid ventricular response Plan: 1. Continue with plan of care as mentioned above 2. Continue medication for rate control. Consulted Cardiology <Bessy Murillo - Last Filed: 11/11/20 04:34>
[2020-11-06] MEDS ORDERED: ASPIRIN 81 MG CHEWABLE TABLET ONE (05:24)
--- NOTE | 2020-11-06 07:39 | RAD REPORT ---
EXAM DESCRIPTION: Louise Single View11/06/2020 2:40 am CLINICAL HISTORY: Chest pain COMPARISON: 2021 FINDINGS: The patient is in a poor degree of inspiration. The lungs appear grossly clear. The heart is borderline enlarged
[2020-11-06] MEDS ORDERED: NITROGLYCERIN 0.4 MG/TAB SL PRN (08:31)
[2020-11-06] MEDS ORDERED: MORPHINE 2 MG/ML SYR IV PRN (08:31)
[2020-11-06] MEDS ORDERED: ONDANSETRON 4 MG/2 ML VIAL IV PRN (08:31)
[2020-11-06] MEDS ORDERED: ACETAMINOPHEN 500 MG TAB PO PRN (08:31)
[2020-11-06] MEDS ORDERED: DILTIAZEM HCL 120 MG SR CAP PO SCH (09:00)
[2020-11-06 09:05] VITALS: BMI 32.4
[2020-11-06] MEDS: NICOTINE 7 MG/PAT TD SCH (09:49)
[2020-11-06] MEDS ORDERED: METOPROLOL TARTRATE 5 MG/5 ML INJ IV STA (10:17)
[2020-11-06] MEDS ORDERED: DIGOXIN 0.25 MG/ML AMP IV ONE (10:18)
[2020-11-06 10:53] LABS: HDL Cholesterol 72 mg/dL (40-60); LDL Cholesterol, Calculated 69 (<130); Troponin I < 0.02 ng/mL (0.0-0.045)
[2020-11-06] MEDS: HYDROMORPHONE HCL 0.5 MG/0.5 ML INJ IV PRN ×2 (13:22→20:34)
[2020-11-06] MEDS ORDERED: POTASSIUM CL SA 10 MEQ TAB PO ONE (14:00)
[2020-11-06] MEDS ORDERED: MAGNESIUM SULFATE 1 gm IVPB 1 GM/100 ML BAG IV ONE (14:00)
[2020-11-06 15:12] LABS: Barbiturates NEGATIVE (NEGATIVE); Benzodiazepines NEGATIVE (NEGATIVE); Cocaine NEGATIVE (NEGATIVE); METHAMPHETAM NEGATIVE (NEGATIVE); Methadone NEGATIVE (NEGATIVE); Opiates POSITIVE (NEGATIVE); Phencyclidine NEGATIVE (NEGATIVE); THC Cannibis NEGATIVE (NEGATIVE)
--- NOTE | 2020-11-06 16:33 | EKG ---
Test Date: 2020-11-06 Test Time: 02:24:16 Buyer Agent: LUIS MEASUREMENT RESULTS: Intervals: Rate: 115 DC: QRSD: 104 QT: 350 QTc: 484 [place]: P: DC: QRS: 32 T: 250 INTERPRETIVE STATEMENTS: Atrial fibrillation with rapid ventricular response Minimal voltage criteria for LVH, may be normal variant ST & T wave abnormality, consider inferolateral ischemia or digitalis effect Abnormal ECG Compared to ECG 02/09/2020 08:26:47 No significant changes Electronically Signed On 11-06-20 16:32:58 CDT by Stefano Ruiz
--- NOTE | 2020-11-06 16:33 | EKG ---
Test Date: 2020-11-06 Test Time: 09:32:54 Tour Production Supervisor: MINOO MEASUREMENT RESULTS: Intervals: Rate: 120 CO: QRSD: 100 QT: 340 QTc: 480 [place]: P: CO: QRS: 29 T: 230 INTERPRETIVE STATEMENTS: Atrial fibrillation with rapid ventricular response Minimal voltage criteria for LVH, may be normal variant ST & T wave abnormality, consider inferior ischemia or digitalis effect ST & T wave abnormality, consider anterolateral ischemia or digitalis effect Abnormal ECG Compared to ECG 11/06/2020 02:24:16 No significant changes Electronically Signed On 11-06-20 16:32:56 CDT by Stefano Ruiz
[2020-11-06] MEDS ORDERED: RIVAROXABAN 20 MG TABLET PO SCH ×2 (17:00)
[2020-11-06] MEDS: DIGOXIN 0.25 MG/ML AMP IV SCH (18:02)
[2020-11-06] MEDS: carvediloL 25 MG TAB PO SCH (20:34)
[2020-11-06] MEDS: DILTIAZEM HCL 120 MG SR CAP PO SCH (20:34)
[2020-11-06] MEDS: lisinopriL 10 MG TAB PO SCH (20:34)
[2020-11-06] MEDS ORDERED: ATORVASTATIN 40 MG TAB PO SCH ×2 (21:00)
[2020-11-07] MEDS: DIGOXIN 0.25 MG/ML AMP IV SCH (00:22)
[2020-11-07] MEDS: HYDROMORPHONE HCL 0.5 MG/0.5 ML INJ IV PRN (00:28)
[2020-11-07] MEDS ORDERED: MELATONIN 5 MG TABLET PO PRN (04:02)
[2020-11-07 06:06] LABS: Absolute Lymphocytes (CBC) 1.4 K/uL (0.7-4.9); Basophils % 0.6 % (0-1.3)
[2020-11-07 06:10] LABS: Protime INR 1.87
[2020-11-07 06:22] LABS: Hematocrit 36.9 % (36.0-45.0); Lymphocytes % 9.5 % (15.3-44.8); MPV 9.6 fL (7.6-11.3); RBC Red Blood Cell Count 3.78 M/uL (3.86-4.86)
[2020-11-07 06:28] LABS: Albumin 3.1 g/dL (3.4-5.0); Bilirubin Total 0.6 mg/dL (0.2-1.0); Magnesium 1.9 mg/dL (1.8-2.4); Phosphorus 4.4 mg/dL (2.5-4.9); Potassium 4.2 mmol/L (3.5-5.1); Protein, Total 6.9 g/dL (6.4-8.2)
--- NOTE | 2020-11-07 08:06 | ECHO ---
HEIGHT: 5 ft 3 in WEIGHT: 183 lb 0 oz DATE OF STUDY: 11/06/[address]: Manuel Proctor 2-DIMENSIONAL: YES M.MODE: YES DOPPLER: YES COLOR FLOW: YES TDS: NO PORTABLE: NO DEFINITY: NO BUBBLE STUDY: NO DIAGNOSIS: ATRIAL FIBRILLATION CARDIAC HISTORY: CATHERIZATION: NO SURGERY: NO PROSTHETIC VALVE: NO PACEMAKER: NO MEASUREMENTS (cm) DIASTOLIC (NORMALS) SYSTOLIC (NORMALS) IVSd 1.0 (0.6-1.2) LA Diam 3.6 (1.9-4.0) LVEF 58% LVIDd 4.1 (3.5-5.7) LVIDs 2.9 (2.0-3.5) %FS 30% LVPWd 1.3 (0.6-1.2) Ao Diam 2.9 (2.0-3.7) 2 DIMENSIONAL ASSESSMENT: RIGHT ATRIUM: NORMAL LEFT ATRIUM: NORMAL RIGHT VENTRICLE: NORMAL LEFT VENTRICLE: LEFT VENTRICULAR HYPERTROPHY TRICUSPID VALVE: NORMAL MITRAL VALVE: NORMAL PULMONIC VALVE: NORMAL AORTIC VALVE: SCLEROSIS PERICARDIAL EFFUSION: NONE AORTIC ROOT: NORMAL LEFT VENTRICULAR WALL MOTION: NORMAL DOPPLER/COLOR FLOW: NORMAL COMMENTS: AORTIC SCLEROSIS WITH NO STENOSIS. LEFT VENTRICULAR HYPERTROPHY. NORMAL LEFT VENTRICULAR EJECTION FRACTION. NORMAL LEFT ATRIAL SIZE. TECHNOLOGIST: Melany MATHUR
[2020-11-07] MEDS: NICOTINE 7 MG/PAT TD SCH (08:31)
[2020-11-07] MEDS: DILTIAZEM HCL 120 MG SR CAP PO SCH (08:32)
[2020-11-07] MEDS: lisinopriL 10 MG TAB PO SCH (08:33)
[2020-11-07] MEDS: carvediloL 25 MG TAB PO SCH (08:33)
[2020-11-07] MEDS ORDERED: DILTIAZEM HCL 120 MG SR CAP PO SCH (09:00)
[2020-11-07 09:32] LABS: Urine Appearance CLOUDY (Clear); Urine Bilirubin NEGATIVE (Negative); Urine Blood 3+ (Negative); Urine Color DK YELLOW (Yellow); Urine Glucose NEGATIVE (Negative); Urine Protein 1+ (Negative)
[2020-11-07 09:40] VITALS: O2SAT 93
[2020-11-07 09:57] LABS: Urine Bacteria 20-50 /HPF (<20); Urine Mucus 2+ /HPF (NONE SEEN)
[2020-11-07 12:41] VITALS: BP 103/53; TEMP 97.4
--- NOTE | 2020-11-08 06:22 | EKG ---
Test Date: 2020-11-06 Test Time: 20:51:11 Psychiatric Mental Health Nurse: SASHA MEASUREMENT RESULTS: Intervals: Rate: 117 [place]: QRSD: 94 QT: 276 QTc: 385 [place]: P: TX: QRS: 39 T: 232 INTERPRETIVE STATEMENTS: Atrial fibrillation with rapid ventricular response Minimal voltage criteria for LVH, may be normal variant ST & T wave abnormality, consider inferolateral ischemia or digitalis effect Abnormal ECG Compared to ECG 11/06/2020 09:32:54 No significant changes Electronically Signed On 11-08-20 06:18:09 CDT by Stefano Ruiz
--- NOTE | 2020-11-08 10:50 | PN ---
Date of Progress Note: 11/07/2020 Ms. Cerda was admitted and seen because of atrial fibrillation, drug use, elevated troponin and BNP pos sibly secondary to atrial fibrillation and demand ischemia. Echocardiogram which was done showed aor tic sclerosis without any stenosis, left ventricular hypertrophy, normal left ventricular ejection fr action, left atrial size. I think her symptoms of chest pain are more likely secondary to her atrial fibrillation. I am comfortable with her going home and have an outpatient stress test and I will ma ke an arrangement for that. Continue her beta-blockers, her Cardizem, and her Xarelto. She is rate controlled today and asymptomatic. MAYE/ELIF Voice ID: [id number] Report ID: [id number]
--- NOTE | 2020-11-08 11:32 | CON ---
Date of Consultation: 11/06/[address] Murillo's service on 11/06/2020. History Of Present Illness: Chest pain and atrial fibrillation. History Of Present Illness: Ms. Cerda is a 60-year-old black female with history of atrial fibrillatio n, hypertension, dyslipidemia, questionable drug use. Came in with atrial fibrillation with a pulse of 107; atypical chest pain, sharp, stabbing without any nausea, vomiting, diaphoresis, PND, orthopne a, pedal edema, palpitations, or syncope. The patient has had similar episodes in the past. Denied PND, orthopnea, pedal edema, palpitation, or syncope. Denied any fever or chills. She was having at rial fibrillation, but she did not feel it. Past Medical History: As stated above. Allergies: SHE IS ALLERGIC TO PENICILLIN. Review of Systems: Negative. Social History: Positive for possible drug use. Medications: At home include Lipitor, carvedilol, diltiazem, lisinopril, melatonin, and Xarelto. Physical Examination: Vital signs: Stable. Her atrial fibrillation rate by the time I saw her was 66. She still had ches t pain throughout the body and appeared to be very anxious and agitated. She was afebrile. HEENT: Negative. Neck: Supple. No bruit. Chest: Clear to auscultation and percussion. Cardiac: Revealed atrial fibrillation. No murmurs, gallops, or rubs. Abdomen: Benign. Extremities: Revealed no clubbing, cyanosis, or edema. Diagnostic Data: Showed an elevated white count. Troponin was 0.09 secondary to atrial fibrillation . BNP was 929 secondary to atrial fibrillation. Her cholesterol was 239 with an HDL of 72 with a no rmal ratio. She has what appeared to be UTI. Opiate screen was positive. Impression And Plan: 1.Chronic atrial fibrillation with rapid ventricular response secondary to drug use. The patient is on a beta-cheyenne, Cardizem and Xarelto. We can increase the beta-cheyenne or the Cardizem for rate control. Continue Xarelto. No need for further cardiac workup and give her IV digoxin or IV metopro lol if her heart rate becomes fast. 2.Dyslipidemia, on Lipitor. 3.Possible urinary tract infection. 4.Elevated troponin and BNP secondary to atrial fibrillation, possibly drug use. We will obtain a 2 D echocardiogram on her to make sure she does not have any new-onset cardiomyopathy. We can see her in the office as an outpatient and will do an outpatient stress test. NASRIN Voice ID: [id number] Report ID: [id number]
--- NOTE | 2020-11-11 04:36 | P.DS ---
Discharge Date: 11/07/20 Disposition: ROUTINE DISCHARGE Discharge Condition: GOOD Reason for Admission: afib with RVR Consultations: Cardiology Brief History of Present Illness: Ms. Cerda is a 60 yo F with afib on Xarelto, HTN, and CAD here today for 10/10 sternal chest pain beginning at 1 am. She says she woke up to use the bathroom and when she went to lay back down she started to feel a pulling sensation in her chest. She says she has not had pain like this before. Also reports SOB and palpitations. Denies dizziness. On presentation, she was found to be in afib with RVR and responded to IV metoprolol. Now rate controlled. She said she did not take her medications last night. She has not recently seen cardiology. She smokes 1/2 ppd. Of note, 1.5 weeks ago she said she had some blood in her stool. She had a similar complaint on previous admission. Hospital Course: Patient was given medication for rate control. Patient is back in a sinus rhythm. Continue with anti coagulation. At this time, patient is stable for discharge home. Appreciate Cardiology input. Urinalysis was also positive for UTI so will start antibiotics. Close outpatient follow-up. Vital Signs/Physical Exam: Temp Pulse Resp BP Pulse Ox 97.4 F 77 20 103/53 L 94 11/07/20 12:00 11/07/20 12:00 11/07/20 12:00 11/07/20 12:00 11/07/20 12:00 General: Alert, In no apparent distress, Oriented x3 Laboratory Data at Discharge: WBC 14.80 K/uL (4.3-10.9) H D 11/07/20 05:45 Hgb 11.9 g/dL (12.0-15.0) L 11/07/20 05:45 Hct 36.9 % (36.0-45.0) 11/07/20 05:45 Plt Count 200 K/uL (152-406) 11/07/20 05:45 PT 21.6 SECONDS (9.5-12.5) H 11/07/20 05:45 INR 1.87 11/07/20 05:45 APTT 34.3 SECONDS (24.3-36.9) 11/07/20 05:45 Sodium 141 mmol/L (136-145) 11/07/20 05:45 Potassium 4.2 mmol/L (3.5-5.1) 11/07/20 05:45 BUN 19 mg/dL (7-18) H 11/07/20 05:45 Creatinine 0.94 mg/dL (0.55-1.3) 11/07/20 05:45 Glucose 128 mg/dL (74-106) H 11/07/20 05:45 Phosphorus 4.4 mg/dL (2.5-4.9) 11/07/20 05:45 Magnesium 1.9 mg/dL (1.8-2.4) 11/07/20 05:45 Total Bilirubin 0.6 mg/dL (0.2-1.0) 11/07/20 05:45 AST 25 U/L (15-37) 11/07/20 05:45 ALT 56 U/L (12-78) 11/07/20 05:45 Alkaline Phosphatase 80 U/L (45-117) 11/07/20 05:45 Troponin I 0.09 ng/mL (0.0-0.045) H 11/06/20 14:44 Triglycerides 239 mg/dL (<150) H 11/06/20 10:14 Cholesterol 189 mg/dL (<200) 11/06/20 10:14 HDL Cholesterol 72 mg/dL (40-60) H 11/06/20 10:14 Cholesterol/HDL Ratio 2.63 11/06/20 10:14 Home Medications: Atorvastatin Calcium [Lipitor] 40 mg PO BEDTIME 30 Days #30 tab 02/09/20 Carvedilol [Coreg] 25 mg PO BID 30 Days #60 02/09/20 Lisinopril [Zestril] 1 tab PO BID 30 Days #60 02/09/20 Rivaroxaban [Xarelto] 1 tab PO DAILY AT SUPPER 30 Days #30 tablet 02/09/20 Atorvastatin Calcium [Lipitor] 40 mg PO BEDTIME #30 tab 11/07/20 Cefdinir [Omnicef] 300 mg PO BID #14 capsule 11/07/20 Diltiazem Cd [Cardizem Cd*] 120 mg PO BID #60 cap 11/07/20 Melatonin 5 mg PO BEDTIME PRN PRN #14 tablet 11/07/20 New Medications: Diltiazem Cd [Cardizem Cd*] 120 mg PO BID #60 cap Atorvastatin Calcium [Lipitor] 40 mg PO BEDTIME #30 tab Melatonin 5 mg PO BEDTIME PRN PRN #14 tablet PRN Reason: Insomnia Cefdinir [Omnicef] 300 mg PO BID #14 capsule Physician Discharge Instructions: OK TO DC IV AND DC HOME FOLLOW-UP WITH PRIMARY CARE PROVIDER IN 1-2 WEEKS FOLLOW-UP WITH CARDIOLOGY IN 1-2 WEEKS RETURN TO THE ER IF symptoms worsen CALL or TEXT DR. ALEMAN AT [phone] IF ANY QUESTIONS REGARDING HOSPITAL STAY. PLEASE CALL THE FLOOR AT [phone] IF ANY MEDICATION OR NURSING QUESTIONS. Diet: AHA Activity: Fall precautions Followup: NONE,NONE [Primary Care Provider] - Time spent managing pt's care (in minutes): 35
== END 2020-11-07 15:45 | disposition home or self-care (01) | DRG 309 ==
LOC: ER 02:17 → ERHOLD 04:53 → 4TH 07:46 → OBSVTOIN 07:54
PROVIDERS: ADMIT Hospitalist; ATTEND Hospitalist
DX: I48.91 Unspecified atrial fibrillation (principal); N39.0 Urinary tract infection, site not specified; I10 Essential (primary) hypertension; I25.10 Atherosclerotic heart disease of native coronary artery without angina pectoris; E78.5 Hyperlipidemia, unspecified; F17.210 Nicotine dependence, cigarettes, uncomplicated; F19.90 Other psychoactive substance use, unspecified, uncomplicated; Z79.01 Long term (current) use of anticoagulants; Z88.0 Allergy status to penicillin
CPT/HCPCS: 36415; 71045; 80048; 80053; 80061; 80076; 80307; 81001; 81003; 83735; 83880; 84100; 84439; 84443; 84484; 85025; 85610; 85730; 87077; 87086; 87088; 87186; 93005; 93306; 94760; 96374; 99285; G0378; J1160; J1170; J2270; J2405; J3475; J7030

== ENCOUNTER 2024-05-13 22:38 | Emergency (ER) | payer OTHER, SELFPAY ==
--- NOTE | 2024-05-13 23:09 | EDPHYS ---
Physician Documentation [facility] Name: Huyen Cerda Age: 63 yrs Sex: Female : 1960 Arrival Date: 05/13/2024 Time: 22:38 Bed IW6 Private MD: ED Physician Jovon Del Toro HPI: 05/13 23:04 This 63 yrs old Black Female presents to ER via Wheelchair with complaints of Ear Pain, [facility] Cough. 23:04 63-year-old female with a past medical history of hypertension and A-fib presents to [facility] the ER for bilateral earache for the past 3 days worsening on the left. The patient is currently taking azithromycin after being diagnosed with a cold by her PCP. She reports that her left ear is throbbing. Denies vomiting, chest pain, shortness of breath, dizziness, headache, or any other symptoms.. Historical: - Allergies: 23:07 PENICILLINS; ha1 - Home Meds: 23:07 lisinopril 20 mg Oral tab 1 tab once daily [Active]; Xarelto 20 mg Oral tab 1 tab once ha1 daily [Active]; diltiazem HCl 30 mg Oral tab 1 tab daily [Active]; atorvastatin 40 mg Oral tab 1 tab once daily [Active]; carvedilol 25 mg Oral tab 1 tab 2 times per day [Active]; - PMHx: 23:07 Atrial Fib; Hyperlipidemia; Hypertension; ha1 - Immunization history:: Adult Immunizations up to date. - Infectious Disease History:: Denies. - Social history:: Smoking status: Patient reports the use of cigarette tobacco products, smokes one-half pack cigarettes per day. ROS: 23:04 Constitutional: Per HPI jh7 Exam: 23:04 Head/Face: Normocephalic, atraumatic. Eyes: Pupils equal round and reactive to light, 7 extra-ocular motions intact. Lids and lashes normal. Conjunctiva and sclera are non-icteric and not injected. Cornea within normal limits. Periorbital areas with no swelling, redness, or edema. Neck: Trachea midline, no thyromegaly or masses palpated, and no cervical lymphadenopathy. Supple, full range of motion without nuchal rigidity, or vertebral point tenderness. No Meningismus. Cardiovascular: Regular rate and rhythm with a normal S1 and S2. No gallops, murmurs, or rubs. Normal PMI, no JVD. No pulse deficits. Respiratory: Lungs have equal breath sounds bilaterally, clear to auscultation and percussion. No rales, rhonchi or wheezes noted. No increased work of breathing, no retractions or nasal flaring. Abdomen/GI: Soft, non-tender, with normal bowel sounds. No distension or tympany. No guarding or rebound. No evidence of tenderness throughout. Skin: Warm, dry with normal turgor. Normal color with no rashes, no lesions, and no evidence of cellulitis. MS/ Extremity: Pulses equal, no cyanosis. Neurovascular intact. Full, normal range of motion. Neuro: Awake and alert, GCS 15, oriented to person, place, time, and situation. Normal gait. 23:04 Constitutional: The patient appears alert, awake, in obvious pain, 23:04 ENT: TM's: bulging, on the left, erythema, that is moderate, on the left, Vital Signs: 23:04 BP 174 / 94; Pulse 87; Resp 18 S; Temp 98.1(T); Pulse Ox 95% on R/A; Weight 86.18 kg; 1 Height 5 ft. 5 in. ; 05/14 00:10 BP 165 / 91; Pulse 85; Resp 18 S; Pulse Ox 96% on R/A; ha1 04 23:04 Body Mass Index 31.62 (86.18 kg, 165.1 cm) [facility] MDM: 05/13 22:42 Medical Screening Exam initiated [facility] 23:50 Differential diagnosis: otitis media, otitis externa, ruptured TM, acute otalgia, [facility] cerumen impaction. Data reviewed: vital signs, nurses notes. I considered the following discharge prescriptions or medication management in the emergency department Medications were administered in the Emergency Department. See MAR. Historians other than the Patient: Spouse/Significant Other: . Care significantly affected by the following chronic conditions: Hypertension. Counseling: I had a detailed discussion with the patient and/or guardian regarding the historical points, exam findings, and any diagnostic results supporting the discharge/admit diagnosis, to return to the emergency department if symptoms worsen or persist or if there are any questions or concerns that arise at home. 23:50 Response to treatment: the patient's symptoms have mildly improved after treatment. ED [facility] course: Patient appeared to be in significant amount of pain. 30 minutes after [place] and dexamethasone were given, the patient still complained of pain. Gave morphine 2 mg IM which improved the patient's pain.. Administered Medications: 23:17 Drug: Dexamethasone IM 10 mg IM once Route: IM; Site: left deltoid; ha1 23:35 Follow up: Response: No adverse reaction ha1 23:17 Drug: Hydrocodone-Acetaminophen PO (7.5 mg-325 mg) 1 tabs PO once Route: PO; ha1 23:35 Follow up: Response: No adverse reaction; Pain is unchanged, physician notified ha1 23:47 Drug: morphine IM 2 mg IM once Route: IM; Site: right deltoid; ha1 05/14 00:10 Follow up: Response: No adverse reaction; Marked relief of symptoms; Pain is decreased; ha1 RASS: Alert and Calm (0) 05/13 23:47 Drug: Ondansetron Oral Disintegrating Tablet Oral Disintegrating Tablet 4 mg PO once ha1 Route: PO; 05/14 00:10 Follow up: Response: No adverse reaction ha1 Disposition: 19:03 Co-signature as Attending Physician, Jovon Del Toro MD I agree with the assessment sp4 and plan of care. I reviewed the patient's care provided by the Advanced Practice Provider and agree with the diagnosis and treatment plan. Disposition Summary: 05/13/24 23:09 Discharge Ordered Notes: Location: Home [facility] Problem: new [facility] Symptoms: are unchanged [facility] Condition: Stable [facility] Diagnosis - Acute serous otitis media, left ear [facility] Followup: [facility] - With: Private Physician - When: 2 - 3 days - Reason: Recheck today's complaints Discharge Instructions: - Discharge Summary Sheet [facility] - Otitis Media, Adult [facility] - Otitis Media With Effusion, Adult [facility] Forms: - Medication Reconciliation Form [facility] - Antibiotic Education [facility] - Patient Portal Instructions [facility] - Leadership Thank You Letter [facility] Prescriptions: - cefdinir 300 mg Oral capsule - take 1 capsule ORAL route 2 times per day for 7 days; 14 capsule; Refills: 0, jh7 Product Selection Permitted Signatures: Jody Rivas FNP FNP [facility] Lisa Mack RN RN [facility] Potepalov, Jovon, MD MD sp4
--- NOTE | 2024-05-13 23:09 | ER ---
Nurse's Notes [facility] Name: Huyen Cerda Age: 63 yrs Sex: Female : 1960 Arrival Date: 05/13/2024 Time: 22:38 Bed IW6 Private MD: Diagnosis: Acute serous otitis media, left ear Presentation: 05/13 23:04 Chief complaint: Patient states: BILATERAL EAR ACHE FOR THE PAST THREE DAYS, ALREADY ha1 TAKING ANTIBIOTICS , SYMPTOMS NOT IMPROVING. Coronavirus screen: Vaccine status: Patient reports being unvaccinated. Ebola Screen: No symptoms or risks identified at this time. Initial Sepsis Screen: Does the patient meet any 2 criteria? No. Patient's initial sepsis screen is negative. Does the patient have a suspected source of infection? No. Patient's initial sepsis screen is negative. Risk Assessment: Do you want to hurt yourself or someone else? Patient reports no desire to harm self or others. Onset of symptoms was May 13, 2024. 23:04 Method Of Arrival: Wheelchair ha1 23:04 Acuity: CINDY 4 ha1 Triage Assessment: 22:50 General: Appears uncomfortable, Behavior is anxious, crying. Pain: Complains of pain in ha1 BILATERAL EAR Pain currently is 10 out of 10 on a pain scale. EENT: Ear canal w/ drainage noted from right ear and left ear. Neuro: Level of Consciousness is awake, alert, obeys commands, Oriented to person, place, time, situation. Cardiovascular: Capillary refill < 3 seconds Patient's skin is warm and dry. Respiratory: Airway is patent Respiratory effort is even, unlabored, Respiratory pattern is regular, symmetrical. Historical: - Allergies: 23:07 PENICILLINS; ha1 - Home Meds: 23:07 lisinopril 20 mg Oral tab 1 tab once daily [Active]; Xarelto 20 mg Oral tab 1 tab once ha1 daily [Active]; diltiazem HCl 30 mg Oral tab 1 tab daily [Active]; atorvastatin 40 mg Oral tab 1 tab once daily [Active]; carvedilol 25 mg Oral tab 1 tab 2 times per day [Active]; - PMHx: 23:07 Atrial Fib; Hyperlipidemia; Hypertension; ha1 - Immunization history:: Adult Immunizations up to date. - Infectious Disease History:: Denies. - Social history:: Smoking status: Patient reports the use of cigarette tobacco products, smokes one-half pack cigarettes per day. Screenin:00 [facility] ED Fall Risk Assessment (Adult) History of falling in the last 3 months, ha1 including since admission No falls in past 3 months (0 pts) Confusion or Disorientation No (0 pts) Intoxicated or Sedated No (0 pts) Impaired Gait Yes (1 pt) Mobility Assist Device Used Yes (1 pt) Altered Elimination No (0 pt) Score/Fall Risk Level 3 or more points = High Risk Oriented to surroundings, Maintained a safe environment, Educated pt \T\ family on fall prevention, incl call for assistance when getting out of bed, Hourly rounding (assess needs \T\ fall precautionary measures) done. Abuse screen: Denies threats or abuse. Denies injuries from another. Nutritional screening: No deficits noted. Tuberculosis screening: No symptoms or risk factors identified. Assessment: 05/14 00:10 Reassessment: Patient and/or family updated on plan of care and expected duration. Pain ha1 level reassessed. Patient is alert, oriented x 3, equal unlabored respirations, skin warm/dry/pink. Patient states feeling better. Patient states symptoms have improved. Vital Signs: 05/13 23:04 BP 174 / 94; Pulse 87; Resp 18 S; Temp 98.1(T); Pulse Ox 95% on R/A; Weight 86.18 kg; ha1 Height 5 ft. 5 in. ; 05/14 00:10 BP 165 / 91; Pulse 85; Resp 18 S; Pulse Ox 96% on R/A; ha1 05/13 23:04 Body Mass Index 31.62 (86.18 kg, 165.1 cm) 1 ED Course: 05/13 22:40 Patient arrived in ED. jj6 22:42 Jody Rivas FNP is PHCP. jh7 22:42 Jovon Del Toro MD is Attending Physician. 7 23:00 Arm band placed on right wrist. 1 23:00 Patient has correct armband on for positive identification. Adult w/ patient. Provided ha1 Education on: plan of care . 23:07 Triage completed. ha1 05/14 00:10 No provider procedures requiring assistance completed. ha1 00:10 Patient did not have IV access during this emergency room visit. ha1 Administered Medications: 05/13 23:17 Drug: Dexamethasone IM 10 mg IM once Route: IM; Site: left deltoid; ha1 23:35 Follow up: Response: No adverse reaction ha1 23:17 Drug: Hydrocodone-Acetaminophen PO (7.5 mg-325 mg) 1 tabs PO once Route: PO; ha1 23:35 Follow up: Response: No adverse reaction; Pain is unchanged, physician notified 1 23:47 Drug: morphine IM 2 mg IM once Route: IM; Site: right deltoid; ha1 05/14 00:10 Follow up: Response: No adverse reaction; Marked relief of symptoms; Pain is decreased; ha1 RASS: Alert and Calm (0) 05/13 23:47 Drug: Ondansetron Oral Disintegrating Tablet Oral Disintegrating Tablet 4 mg PO once ha1 Route: PO; 05/14 00:10 Follow up: Response: No adverse reaction ha1 Medication: 00:10 VIS not applicable for this client. ha1 Outcome: 05/13 23:09 Discharge ordered by MD. delgado 05/14 00:10 Patient left the ED. ha1 00:10 Discharged to home via wheelchair, with family, ha1 00:10 Condition: stable 00:10 Discharge instructions given to patient, family, Instructed on discharge instructions, follow up and referral plans. medication usage, Demonstrated understanding of instructions, follow-up care, medications, Prescriptions given X 1, Signatures: Jody Archer [email or web address] Jody Rivas FNP FNP 7 Lisa Mack RN RN ha1 Corrections: (The following items were deleted from the chart) 00:42 00:41 Patient left the ED. ha1 ha1
[2024-05-13] MEDS ORDERED: HYDROCODONE/APAP 7.5/325 MG TAB ONE (23:12)
[2024-05-13] MEDS ORDERED: dexAMETHasone 10 MG/ML VIAL ONE (23:12)
[2024-05-13] MEDS ORDERED: ONDANSETRON 4 MG (ODT) TAB ONE (23:40)
[2024-05-13] MEDS ORDERED: MORPHINE 2 MG/ML SYR ONE (23:40)
[2024-05-14 00:53] VITALS: BP 174/94; TEMP 98.1; O2SAT 95
== END 2024-05-14 00:41 | disposition home or self-care (01) ==
LOC: ER 22:38
DX: H65.02 Acute serous otitis media, left ear (principal); R05.9 Cough, unspecified
CPT/HCPCS: 96372; 99284; Q0162; J1100; J2270